=== PATIENT | male | born 1935 | race Caucasian/White ===

== ENCOUNTER 2019-03-08 16:18 | Inpatient (IN) ==
[2019-03-08] MEDS ORDERED: PHARMACY CONSULT - VANCOMYCIN XX SCH (17:00)
[2019-03-08] MEDS: NS 1000 ML 1,000 ML IV SCH (17:06)
[2019-03-08] MEDS: LEVAQUIN PREMIX IV 500 MG 500 MG/100 ML BAG IV SCH (17:06)
[2019-03-08 17:07] LABS: BASOPHILS # (AUTO) 0.1 X10^3/uL (0.0-0.1); BASOPHILS % (AUTO) 0.6 % (0.2-1.0); EOSINOPHILS # (AUTO) 0.1 x10^3/uL (0.0-0.2); EOSINOPHILS % (AUTO) 0.9 % (0.9-2.9); HEMATOCRIT 39.9 % (42.0-54.0); HEMOGLOBIN 13.6 g/dL (13.5-18.0); LYMPHOCYTES # (AUTO) 2.4 X10^3/uL (1.3-2.9); MEAN CORPUSCULAR HEMOGLOBIN 33.1 pg (27.0-34.0); MEAN CORPUSCULAR VOLUME 97.3 fL (80.0-100.0); MEAN PLATELET VOLUME 8.3 fL (7.4-11.0); MONOCYTES # (AUTO) 0.8 x10^3/uL (0.3-0.8); NEUTROPHILS # (AUTO) 5.6 x10^3/uL (2.2-4.8); NEUTROPHILS % (AUTO) 62.5 % (42.0-75.0); PLATELET COUNT 194 X10^3/uL (150.0-450.0); RED CELL DISTRIBUTION WIDTH 14.6 % (11.6-16.5); WHITE BLOOD COUNT 8.9 X10^3/uL (3.6-10.0)
[2019-03-08 17:21] LABS: ALANINE AMINOTRANSFERASE 16 Units/L (12-78); ALBUMIN 3.4 g/dL (3.4-5.0); ALKALINE PHOSPHATASE 84 Units/L (46-116); ASPARTATE AMINO TRANSFERASE 16 Units/L (15-37); BLOOD UREA NITROGEN 13 mg/dL (7-18); CALCIUM 8.8 mg/dL (8.5-10.1); CARBON DIOXIDE 30.5 mmol/L (21-32); CHLORIDE 97 mmol/L (98-107); CREATININE 1.15 mg/dL (0.70-1.30); SODIUM 136 mmol/L (136-145); TOTAL PROTEIN 7.8 g/dL (6.4-8.2); eGFR NON BLACK RACES > 60 (>60)
[2019-03-08] MEDS ORDERED: K-RIDER 10 MEQ/NS 100 ML 10 MEQ/100 ML BAG IV PRN (17:34)
[2019-03-08] MEDS ORDERED: MICRO K EXTEN CAP 10 MEQ PO PRN (17:34)
[2019-03-08] MEDS ORDERED: POTASSIUM CHLORIDE LIQ 20 MEQ UDC PO PRN (17:34)
[2019-03-08] MEDS ORDERED: POTASSIUM CHL 60 MEQ/NS 0.45% 500 ML IV PRN (17:34)
[2019-03-08] MEDS ORDERED: POTASSIUM CHL 40 MEQ/NS 0.45% 500 ML IV PRN (17:34)
[2019-03-08 17:47] VITALS: BMI 25.1
[2019-03-08] MEDS: MAGNESIUM SULFATE 1 GRAM/100 mL PREMIX 1 GM/100 ML BAG IV PRN (18:30)
[2019-03-08] MEDS: KLOR-CON PO PRN (18:35)
[2019-03-08] MEDS: VANCOMYCIN HCL 1 G in D5W 250 ML IV 250 ML IV SCH (20:30)
[2019-03-08] MEDS: K-DUR TAB 20 MEQ PO PRN (22:38)
[2019-03-09 05:48] LABS: BASOPHILS % (AUTO) 0.2 % (0.2-1.0); EOSINOPHILS # (AUTO) 0.1 x10^3/uL (0.0-0.2); HEMATOCRIT 33.7 % (42.0-54.0); HEMOGLOBIN 11.7 g/dL (13.5-18.0); LYMPHOCYTES # (AUTO) 1.7 X10^3/uL (1.3-2.9); MEAN CORPUSCULAR HEMOGLOBIN 33.3 pg (27.0-34.0); MEAN CORPUSCULAR HGB CONC 34.6 g/dL (33.0-35.0); MEAN CORPUSCULAR VOLUME 96.4 fL (80.0-100.0); MEAN PLATELET VOLUME 8.4 fL (7.4-11.0); MONOCYTES # (AUTO) 0.6 x10^3/uL (0.3-0.8); MONOCYTES % (AUTO) 8.2 % (0.0-13.0); NEUTROPHILS # (AUTO) 5.4 x10^3/uL (2.2-4.8); NEUTROPHILS % (AUTO) 68.6 % (42.0-75.0); PLATELET COUNT 153 X10^3/uL (150.0-450.0); RED CELL DISTRIBUTION WIDTH 14.8 % (11.6-16.5); WHITE BLOOD COUNT 7.9 X10^3/uL (3.6-10.0)
[2019-03-09 05:58] LABS: ALANINE AMINOTRANSFERASE 13 Units/L (12-78); ALBUMIN 2.6 g/dL (3.4-5.0); ALKALINE PHOSPHATASE 63 Units/L (46-116); ASPARTATE AMINO TRANSFERASE 13 Units/L (15-37); BLOOD UREA NITROGEN 9 mg/dL (7-18); CALCIUM 7.9 mg/dL (8.5-10.1); CARBON DIOXIDE 29.1 mmol/L (21-32); CHLORIDE 102 mmol/L (98-107); COR NA(FOR HYPERGLY) 137 mmol/L (136-145); CREATININE 0.92 mg/dL (0.70-1.30); SODIUM 137 mmol/L (136-145); TOTAL PROTEIN 6.2 g/dL (6.4-8.2); eGFR NON BLACK RACES > 60 (>60)
[2019-03-09] MEDS: NS 1000 ML 1,000 ML IV SCH ×3 (06:29→21:06)
[2019-03-09] MEDS: ZOFRAN INJ 4 MG VIAL IVP PRN (06:35)
[2019-03-09] MEDS: VANCOMYCIN HCL 1 G in D5W 250 ML IV 250 ML IV SCH ×2 (09:13→21:07)
[2019-03-09] MEDS: LEVAQUIN PREMIX IV 500 MG 500 MG/100 ML BAG IV SCH (09:15)
--- NOTE | 2019-03-09 09:58 | DR.UPDATE ---
H&P Update History and Physical Update: History and Physical reviewed and patient examined. Changes noted: Yes with the following: WAS SEEN IN THE OFFICE TODAY FOR COMPLAINTS OF RIGHT FOOT AND ANKLE REDNESS, PAIN, AND SWELLING. HE REPORTS FALLING THREE DAYS AGO. HE WAS ADMITTED FOR FURTHER EVALUATION AND TREATMENT OF RIGHT FOOT CELLULITIS. ON ADMISSION, WE WILL OBTAIN LABS AND START IV VANCOMYCIN AND IV LEVAQUIN. OTHERWISE, WE PLAN TO FOLLOW UP WITH AM LABS AND CONTINUE TO MONITOR. Prescription drug monitoring program results: PDMP was not reviewed H&P Reviewed: Yes Patient was examined?: Yes
--- NOTE | 2019-03-09 10:08 | PCM.PROG ---
Progress Note - Progress Note for Day of Date of Exam: 03/09/19 - Subjective Subjective: WAS ADMITTED FOR RIGHT LOWER EXTREMITY CELLULITIS. TODAY, HE IS ALERT AND ORIENTED, LYING IN BED ON MORNING ROUNDS. HE CONTINUES WITH ERYTHEMA, EDEMA, AND PAIN TO THE RIGHT FOOT. HE REPORTS THAT PAIN HAS SLIGHTLY IMPROVED SINCE YESTERDAY. ON EXAMINATION, HEART IS REGULAR IN RATE AND RHYTHM. BILATERAL LUNGS ARE NOTED WITH DIMINISHED LUNG SOUNDS THROUGHOUT. ABDOMEN IS ROUND, SOFT, AND NON-TENDER WITH NORMAL BOWEL SOUNDS NOTED IN ALL QUADRANTS. RIGHT FOOT CONTINUES WITH ERYTHEMA AND EDEMA, ALTHOUGH DECREASED SINCE YESTERDAY. HIS VITALS THIS MORNING ARE 97.6-69-20-96%-138/63. LABS WERE OBTAINED. ABNORMAL LAB VALUES INCLUDE THE FOLLOWING: RBC 3.50, HGB 11.7, HCT 33.7, GLUCOSE 112, CALCIUM 7.9, TOTAL BILI 1.20, AST 13, ALBUMIN 2.6. BLOOD CULTURES ARE PENDING. HE IS CURRENTLY RECEIVING IV FLUIDS, IV VANCOMYCIN, AND IV LEVAQUIN. WE WILL CONTINUE WITH CURRENT PLAN OF CARE TODAY. WE WILL OBTAIN A MRI WITH CONTRAST OF THE RIGHT LOWER EXTREMITY AND OBTAIN URIC ACID, SED RATE, AND CRP LEVELS. OTHERWISE, WE WILL FOLLOW UP WITH AM LABS AND CONTINUE TO MONITOR. - Past Medical Family Social History Past Med/Fam/Surg Hx: No changes since H&P Allergies: Allergies diphenhydramine [From Benadryl] Allergy (Verified 03/08/19 16:44) - Review of Systems ROS: No change since H&P - Vital Signs and I&O's Vital Signs: Temperature 97.6 F Pulse Rate [Left Brachial] 69 Respiratory Rate 20 Blood Pressure [Left Arm] 138/63 Blood Pressure 145/62 O2 Sat by Pulse Oximetry 96 Intake and Output: Intake & Output 03/06/19 03/07/19 03/08/19 03/09/19 11:59 11:59 11:59 11:59 Intake Total 2099 Balance 2099 - Physical Exam Oriented: Normal Eyes: Normal Ear: Normal Nose: Normal Throat: Normal Respiratory: Normal Cardiovascular: Normal : Normal Auscultation: Bowel Sounds: Normal Palpation: Normal Tenderness: Normal Skin: Red (RIGHT FOOT ), Tender, Hot Musculoskeletal: Right, Foot, Swelling, Tender Psychiatric: Normal Mood Description: Calm Affect: Normal Speech Pattern: Clear, Appropriate - Laboratory and Diagnostics Result Diagrams: 03/09/19 04:47 03/09/19 04:47 Labs: Laboratory WBC 7.9 X10^3/uL (3.6-10.0) 03/09/19 04:47 RBC 3.50 X10^6/uL (4.7-6.0) L 03/09/19 04:47 Hgb 11.7 g/dL (13.5-18.0) L 03/09/19 04:47 Hct 33.7 % (42.0-54.0) L 03/09/19 04:47 MCV 96.4 fL (80.0-100.0) 03/09/19 04:47 MCH 33.3 pg (27.0-34.0) 03/09/19 04:47 MCHC 34.6 g/dL (33.0-35.0) 03/09/19 04:47 RDW 14.8 % (11.6-16.5) 03/09/19 04:47 Plt Count 153 X10^3/uL (150.0-450.0) 03/09/19 04:47 MPV 8.4 fL (7.4-11.0) 03/09/19 04:47 Neut % (Auto) 68.6 % (42.0-75.0) 03/09/19 04:47 Lymph % (Auto) 22.0 % (21.0-51.0) 03/09/19 04:47 [place] % (Auto) 8.2 % (0.0-13.0) 03/09/19 04:47 Eos % (Auto) 1.0 % (0.9-2.9) 03/09/19 04:47 Baso % (Auto) 0.2 % (0.2-1.0) 03/09/19 04:47 Neut # (Auto) 5.4 x10^3/uL (2.2-4.8) H 03/09/19 04:47 Lymph # (Auto) 1.7 X10^3/uL (1.3-2.9) 03/09/19 04:47 [place] # (Auto) 0.6 x10^3/uL (0.3-0.8) 03/09/19 04:47 Eos # (Auto) 0.1 x10^3/uL (0.0-0.2) 03/09/19 04:47 Baso # (Auto) 0.0 X10^3/uL (0.0-0.1) 03/09/19 04:47 Absolute Nucleated RBC 0.0 /100WBC 03/09/19 04:47 Sodium 137 mmol/L (136-145) 03/09/19 04:47 Corrected Sodium 137 mmol/L (136-145) 03/09/19 04:47 Potassium 3.7 mmol/L (3.5-5.1) 03/09/19 04:47 Chloride 102 mmol/L (98-107) 03/09/19 04:47 Carbon Dioxide 29.1 mmol/L (21-32) 03/09/19 04:47 BUN 9 mg/dL (7-18) 03/09/19 04:47 Creatinine 0.92 mg/dL (0.70-1.30) 03/09/19 04:47 Est GFR (MDRD) Af Amer > 60 (>60) 03/09/19 04:47 Est GFR (MDRD) Non-Af > 60 (>60) 03/09/19 04:47 Glucose 112 mg/dL (65-99) H 03/09/19 04:47 Calcium 7.9 mg/dL (8.5-10.1) L 03/09/19 04:47 Corrected Calcium 9.0 mg/dL (8.5-10.1) 03/09/19 04:47 Magnesium 2.0 mg/dL (1.7-2.9) 03/09/19 04:47 Total Bilirubin 1.20 mg/dL (0.2-1.0) H 03/09/19 04:47 AST 13 Units/L (15-37) L 03/09/19 04:47 ALT 13 Units/L (12-78) 03/09/19 04:47 Alkaline Phosphatase 63 Units/L (46-116) 03/09/19 04:47 Total Protein 6.2 g/dL (6.4-8.2) L 03/09/19 04:47 Albumin 2.6 g/dL (3.4-5.0) L 03/09/19 04:47 Globulin 3.6 g/dL (2.5-4.5) 03/09/19 04:47 Albumin/Globulin Ratio 0.7 Ratio (1.1-2.1) L 03/09/19 04:47 - Plan (1) Cellulitis of right foot Status: Acute Plan: IV VANCOMYCIN, IV LEVAQUIN, MRI LOWER EXTREMITY WITH CONTRAST, CONTINUE TO MONITOR
[2019-03-09] MEDS ORDERED: ULTRAM PO PRN (10:18)
[2019-03-09 10:54] LABS: URIC ACID 5.7 mg/dL (3.5-7.2)
[2019-03-09] MEDS: ELIQUIS PO SCH ×2 (11:00→21:07)
[2019-03-09] MEDS: COLACE CAP 100 MG PO SCH (21:07)
[2019-03-10 05:47] LABS: BASOPHILS % (AUTO) 0.3 % (0.2-1.0); EOSINOPHILS # (AUTO) 0.2 x10^3/uL (0.0-0.2); EOSINOPHILS % (AUTO) 1.9 % (0.9-2.9); HEMATOCRIT 34.5 % (42.0-54.0); LYMPHOCYTES # (AUTO) 1.9 X10^3/uL (1.3-2.9); LYMPHOCYTES % (AUTO) 23.3 % (21.0-51.0); MEAN CORPUSCULAR HEMOGLOBIN 33.6 pg (27.0-34.0); MEAN CORPUSCULAR HGB CONC 34.9 g/dL (33.0-35.0); MEAN CORPUSCULAR VOLUME 96.3 fL (80.0-100.0); MONOCYTES # (AUTO) 0.6 x10^3/uL (0.3-0.8); MONOCYTES % (AUTO) 7.8 % (0.0-13.0); NEUTROPHILS # (AUTO) 5.4 x10^3/uL (2.2-4.8); NEUTROPHILS % (AUTO) 66.7 % (42.0-75.0); PLATELET COUNT 162 X10^3/uL (150.0-450.0); RED BLOOD COUNT 3.59 X10^6/uL (4.7-6.0); RED CELL DISTRIBUTION WIDTH 14.8 % (11.6-16.5); WHITE BLOOD COUNT 8.1 X10^3/uL (3.6-10.0)
[2019-03-10 06:02] LABS: ALANINE AMINOTRANSFERASE 10 Units/L (12-78); ALBUMIN 2.6 g/dL (3.4-5.0); ALKALINE PHOSPHATASE 63 Units/L (46-116); ASPARTATE AMINO TRANSFERASE 13 Units/L (15-37); BLOOD UREA NITROGEN 10 mg/dL (7-18); CALCIUM 8.2 mg/dL (8.5-10.1); CARBON DIOXIDE 29.2 mmol/L (21-32); CHLORIDE 102 mmol/L (98-107); COR CA(FOR HYPOALB) 9.3 mg/dL (8.5-10.1); COR NA(FOR HYPERGLY) 137 mmol/L (136-145); CREATININE 0.86 mg/dL (0.70-1.30); SODIUM 137 mmol/L (136-145); TOTAL PROTEIN 6.5 g/dL (6.4-8.2); eGFR NON BLACK RACES > 60 (>60)
[2019-03-10] MEDS: K-DUR TAB 20 MEQ PO PRN (06:32)
[2019-03-10] MEDS: LEVAQUIN PREMIX IV 500 MG 500 MG/100 ML BAG IV SCH (08:30)
[2019-03-10] MEDS ORDERED: PHARMACY COMMENT IV NR (08:30)
[2019-03-10] MEDS: ELIQUIS PO SCH ×2 (08:32→22:00)
[2019-03-10] MEDS: PATIENT'S HOME MEDICATION PO SCH (08:35)
[2019-03-10] MEDS: NS 1000 ML 1,000 ML IV SCH ×3 (10:13→21:00)
[2019-03-10] MEDS: VANCOMYCIN HCL 1 G in D5W 250 ML IV 250 ML IV SCH ×2 (10:13→23:00)
--- NOTE | 2019-03-10 11:02 | VAS ---
HISTORYRT RLE EDEMA, RT FOOT CELLULITISSTUDYLOWER EXT VENOUS, UNILATERALCOMPARISONNo priorsTECHNIQUEMultiple michaud scale, duplex and color flow Doppler images of the deep venous system were obtained of the right lower extremity.FINDINGSThe deep venous system of the right lower extremity was evaluated from the level of the common femoral vein through the popliteal vein. Normal color flow and augmentation can be observed. In addition, normal compression is seen throughout the deep venous system.IMPRESSIONNegative for DVT.Electronically signed by: SYD RUTLEDGE (Mar 10, 2019 11:01:06)
--- NOTE | 2019-03-10 11:07 | PCM.PROG ---
Progress Note - Progress Note for Day of Date of Exam: 03/10/19 - Subjective Subjective: WAS ADMITTED FOR RIGHT LOWER EXTREMITY CELLULITIS. TODAY, HE IS ALERT AND ORIENTED, LYING IN BED ON MORNING ROUNDS. HE CONTINUES WITH ERYTHEMA, EDEMA, AND PAIN TO THE RIGHT FOOT. REDNESS HAS INCREASED SINCE YESTERDAY. IT HAS INCREASED OUTSIDE OF MARKINGS THAT WERE MADE ON ADMISSION. ON EXAMINATION, HEART IS REGULAR IN RATE AND RHYTHM. BILATERAL LUNGS ARE NOTED WITH DIMINISHED LUNG SOUNDS THROUGHOUT. ABDOMEN IS ROUND, SOFT, AND NON-TENDER WITH NORMAL BOWEL SOUNDS NOTED IN ALL QUADRANTS. RIGHT FOOT CONTINUES WITH ERYTHEMA AND EDEMA. SWELLING HAS INCREASED SINCE YESTERDAY. HIS VITALS THIS MORNING ARE 98.0-84-18-96%-138/78. LABS WERE OBTAINED. ABNORMAL LAB VALUES INCLUDE THE FOL LOWING: RBC 3.59, HGB 12.0, HCT 34.5, GLUCOSE 120, CALCIUM 8.2, TOTAL BILI 1.10, AST 13, ALT 10, CRP 101.60, ALBUMIN 2.6. BLOOD CULTURES ARE PENDING. HE IS CURRENTLY RECEIVING IV FLUIDS, IV VANCOMYCIN, AND IV LEVAQUIN. WE WILL CONTINUE WITH CURRENT PLAN OF CARE TODAY. WE WILL OBTAIN A MRI WITH CONTRAST OF THE RIGHT LOWER EXTREMITY THIS MORNING AND ALSO A LOWER EXTREMITY VENOUS DOPPLER. OTHERWISE, WE WILL FOLLOW UP WITH AM LABS AND CONTINUE TO MONITOR. - Past Medical Family Social History Past Med/Fam/Surg Hx: No changes since H&P Allergies: Allergies diphenhydramine [From Benadryl] Allergy (Verified 03/08/19 16:44) - Review of Systems ROS: No change since H&P - Vital Signs and I&O's Vital Signs: Temperature 98 F Pulse Rate [Left Brachial] 84 Respiratory Rate 18 Blood Pressure [Left Arm] 138/78 Blood Pressure 145/62 O2 Sat by Pulse Oximetry 96 Intake and Output: Intake & Output 03/07/19 03/08/19 03/09/19 03/10/19 11:59 11:59 11:59 11:59 Intake Total 2099 3680 / 3680 Balance 2099 3680 / 3680 - Physical Exam Oriented: Normal Eyes: Normal Ear: Normal Nose: Normal Throat: Normal Respiratory: Normal Cardiovascular: Normal : Normal Auscultation: Bowel Sounds: Normal Tenderness: Normal Skin: Red (RIGHT FOOT ), Tender, Hot Musculoskeletal: Right, Foot, Swelling, Tender Psychiatric: Normal Mood Description: Calm Affect: Normal Speech Pattern: Clear, Appropriate - Laboratory and Diagnostics Result Diagrams: 03/10/19 04:51 03/10/19 04:51 Labs: 03/08/19 16:56 Blood Blood Culture - Preliminary Laboratory WBC 8.1 X10^3/uL (3.6-10.0) 03/10/19 04:51 RBC 3.59 X10^6/uL (4.7-6.0) L 03/10/19 04:51 Hgb 12.0 g/dL (13.5-18.0) L 03/10/19 04:51 Hct 34.5 % (42.0-54.0) L 03/10/19 04:51 MCV 96.3 fL (80.0-100.0) 03/10/19 04:51 MCH 33.6 pg (27.0-34.0) 03/10/19 04:51 MCHC 34.9 g/dL (33.0-35.0) 03/10/19 04:51 RDW 14.8 % (11.6-16.5) 03/10/19 04:51 Plt Count 162 X10^3/uL (150.0-450.0) 03/10/19 04:51 MPV 8.0 fL (7.4-11.0) 03/10/19 04:51 Neut % (Auto) 66.7 % (42.0-75.0) 03/10/19 04:51 Lymph % (Auto) 23.3 % (21.0-51.0) 03/10/19 04:51 [place] % (Auto) 7.8 % (0.0-13.0) 03/10/19 04:51 Eos % (Auto) 1.9 % (0.9-2.9) 03/10/19 04:51 Baso % (Auto) 0.3 % (0.2-1.0) 03/10/19 04:51 Neut # (Auto) 5.4 x10^3/uL (2.2-4.8) H 03/10/19 04:51 Lymph # (Auto) 1.9 X10^3/uL (1.3-2.9) 03/10/19 04:51 [place] # (Auto) 0.6 x10^3/uL (0.3-0.8) 03/10/19 04:51 Eos # (Auto) 0.2 x10^3/uL (0.0-0.2) 03/10/19 04:51 Baso # (Auto) 0.0 X10^3/uL (0.0-0.1) 03/10/19 04:51 Absolute Nucleated RBC 0.1 /100WBC 03/10/19 04:51 ESR 51 MM/HOUR (0-15) H 03/09/19 10:35 Sodium 137 mmol/L (136-145) 03/10/19 04:51 Corrected Sodium 137 mmol/L (136-145) 03/10/19 04:51 Potassium 3.5 mmol/L (3.5-5.1) 03/10/19 04:51 Chloride 102 mmol/L (98-107) 03/10/19 04:51 Carbon Dioxide 29.2 mmol/L (21-32) 03/10/19 04:51 BUN 10 mg/dL (7-18) 03/10/19 04:51 Creatinine 0.86 mg/dL (0.70-1.30) 03/10/19 04:51 Est GFR (MDRD) Af Amer > 60 (>60) 03/10/19 04:51 Est GFR (MDRD) Non-Af > 60 (>60) 03/10/19 04:51 Glucose 120 mg/dL (65-99) H 03/10/19 04:51 Uric Acid 5.7 mg/dL (3.5-7.2) 03/09/19 10:35 Calcium 8.2 mg/dL (8.5-10.1) L 03/10/19 04:51 Corrected Calcium 9.3 mg/dL (8.5-10.1) 03/10/19 04:51 Magnesium 2.0 mg/dL (1.7-2.9) 03/09/19 04:47 Total Bilirubin 1.10 mg/dL (0.2-1.0) H 03/10/19 04:51 AST 13 Units/L (15-37) L 03/10/19 04:51 ALT 10 Units/L (12-78) L 03/10/19 04:51 Alkaline Phosphatase 63 Units/L (46-116) 03/10/19 04:51 C-Reactive Protein 101.60 mg/L (0-3.0) H 03/09/19 10:35 Total Protein 6.5 g/dL (6.4-8.2) 03/10/19 04:51 Albumin 2.6 g/dL (3.4-5.0) L 03/10/19 04:51 Globulin 3.9 g/dL (2.5-4.5) 03/10/19 04:51 Albumin/Globulin Ratio 0.7 Ratio (1.1-2.1) L 03/10/19 04:51 - Plan (1) Cellulitis of right foot Status: Acute Plan: IV VANCOMYCIN, IV LEVAQUIN, MRI LOWER EXTREMITY WITH CONTRAST, VENOUS DOPPLER, CONTINUE TO MONITOR
--- NOTE | 2019-03-10 17:16 | MRI ---
Exam:EXT LOWER NON-JOINT W W/O CONIndication: RT FOOT CELLULITISComparison: [None available]Technique:Multiplanar, multisequence imaging of the right foot before and after administration of 18 cc of MultiHance intravenously.Findings:[Non localizing edema is noted within the subcutaneous tissues of the right mid and forefoot with mild increased postcontrast enhancement consistent with cellulitis. There is no localizing fluid collection, abscess or skin ulceration within the foot. No localizing or aggressive bone marrow signal abnormality within the foot. There is subcortical cyst formation and increased enhancement within the calcaneocuboid joint. Mild dysplastic changes Achilles and plantar fascia. No evidence of acute fasciitis.Impression: Soft tissue swelling with postcontrast enhancement within the dorsum of the midfoot and forefoot are consistent with cellulitis. No abscess, localizing fluid collection or soft tissue gas identified. There is no MR evidence to suggest osteomyelitis.Degenerative change of the calcaneocuboid jointDysplastic change of the Achilles and plantar fascia.Electronically signed by: ZENIA WATSON (Mar 10, 2019 17:15:50)
[2019-03-10] MEDS: COLACE CAP 100 MG PO SCH (22:00)
[2019-03-10 22:46] LABS: CREATININE 0.93 mg/dL (0.70-1.30); VANCOMYCIN,TROUGH 8.3 ug/mL (15-20)
[2019-03-11 06:23] LABS: BASOPHILS % (AUTO) 0.6 % (0.2-1.0); EOSINOPHILS # (AUTO) 0.2 x10^3/uL (0.0-0.2); EOSINOPHILS % (AUTO) 3.6 % (0.9-2.9); HEMATOCRIT 34.3 % (42.0-54.0); HEMOGLOBIN 11.6 g/dL (13.5-18.0); LYMPHOCYTES # (AUTO) 1.3 X10^3/uL (1.3-2.9); LYMPHOCYTES % (AUTO) 18.5 % (21.0-51.0); MEAN CORPUSCULAR HEMOGLOBIN 32.7 pg (27.0-34.0); MEAN CORPUSCULAR HGB CONC 33.9 g/dL (33.0-35.0); MEAN CORPUSCULAR VOLUME 96.3 fL (80.0-100.0); MONOCYTES # (AUTO) 0.5 x10^3/uL (0.3-0.8); MONOCYTES % (AUTO) 7.9 % (0.0-13.0); NEUTROPHILS # (AUTO) 4.8 x10^3/uL (2.2-4.8); NEUTROPHILS % (AUTO) 69.4 % (42.0-75.0); PLATELET COUNT 171 X10^3/uL (150.0-450.0); RED BLOOD COUNT 3.56 X10^6/uL (4.7-6.0); RED CELL DISTRIBUTION WIDTH 14.9 % (11.6-16.5); WHITE BLOOD COUNT 6.9 X10^3/uL (3.6-10.0)
[2019-03-11 07:09] LABS: ALANINE AMINOTRANSFERASE 11 Units/L (12-78); ALBUMIN 2.5 g/dL (3.4-5.0); ALKALINE PHOSPHATASE 58 Units/L (46-116); ASPARTATE AMINO TRANSFERASE 10 Units/L (15-37); BLOOD UREA NITROGEN 10 mg/dL (7-18); CALCIUM 8.3 mg/dL (8.5-10.1); CARBON DIOXIDE 27.7 mmol/L (21-32); CHLORIDE 105 mmol/L (98-107); COR CA(FOR HYPOALB) 9.5 mg/dL (8.5-10.1); COR NA(FOR HYPERGLY) 141 mmol/L (136-145); CREATININE 0.76 mg/dL (0.70-1.30); SODIUM 141 mmol/L (136-145); TOTAL PROTEIN 6.2 g/dL (6.4-8.2); eGFR NON BLACK RACES > 60 (>60)
[2019-03-11] MEDS: LEVAQUIN PREMIX IV 500 MG 500 MG/100 ML BAG IV SCH (08:26)
[2019-03-11] MEDS: ELIQUIS PO SCH ×2 (08:29→21:30)
[2019-03-11] MEDS: PATIENT'S HOME MEDICATION PO SCH (08:29)
[2019-03-11] MEDS: VANCOMYCIN HCL 1 G in D5W 250 ML IV 250 ML IV SCH ×2 (09:50→21:31)
[2019-03-11] MEDS: ZOFRAN INJ 4 MG VIAL IVP PRN (10:36)
[2019-03-11] MEDS: NS 1000 ML 1,000 ML IV SCH ×2 (11:14→12:13)
[2019-03-11] MEDS: COLACE CAP 100 MG PO SCH (21:30)
[2019-03-12] MEDS: NS 1000 ML 1,000 ML IV SCH ×3 (02:39→17:41)
[2019-03-12 06:12] LABS: BASOPHILS % (AUTO) 0.4 % (0.2-1.0); EOSINOPHILS # (AUTO) 0.3 x10^3/uL (0.0-0.2); EOSINOPHILS % (AUTO) 4.3 % (0.9-2.9); HEMATOCRIT 33.3 % (42.0-54.0); HEMOGLOBIN 11.5 g/dL (13.5-18.0); LYMPHOCYTES # (AUTO) 1.5 X10^3/uL (1.3-2.9); LYMPHOCYTES % (AUTO) 20.1 % (21.0-51.0); MEAN CORPUSCULAR HEMOGLOBIN 33.4 pg (27.0-34.0); MEAN CORPUSCULAR HGB CONC 34.6 g/dL (33.0-35.0); MEAN CORPUSCULAR VOLUME 96.6 fL (80.0-100.0); MEAN PLATELET VOLUME 8.3 fL (7.4-11.0); MONOCYTES # (AUTO) 0.5 x10^3/uL (0.3-0.8); MONOCYTES % (AUTO) 7.5 % (0.0-13.0); NEUTROPHILS % (AUTO) 67.7 % (42.0-75.0); PLATELET COUNT 176 X10^3/uL (150.0-450.0); RED BLOOD COUNT 3.45 X10^6/uL (4.7-6.0); RED CELL DISTRIBUTION WIDTH 14.7 % (11.6-16.5); WHITE BLOOD COUNT 7.3 X10^3/uL (3.6-10.0)
[2019-03-12 06:21] LABS: ALANINE AMINOTRANSFERASE 10 Units/L (12-78); ALBUMIN 2.4 g/dL (3.4-5.0); ALKALINE PHOSPHATASE 56 Units/L (46-116); ASPARTATE AMINO TRANSFERASE 13 Units/L (15-37); BLOOD UREA NITROGEN 10 mg/dL (7-18); CALCIUM 8.1 mg/dL (8.5-10.1); CARBON DIOXIDE 30.4 mmol/L (21-32); CHLORIDE 105 mmol/L (98-107); COR CA(FOR HYPOALB) 9.4 mg/dL (8.5-10.1); CREATININE 0.86 mg/dL (0.70-1.30); SODIUM 141 mmol/L (136-145); eGFR NON BLACK RACES > 60 (>60)
[2019-03-12] MEDS: LEVAQUIN PREMIX IV 500 MG 500 MG/100 ML BAG IV SCH (08:39)
[2019-03-12] MEDS: ELIQUIS PO SCH ×2 (08:40→21:35)
[2019-03-12] MEDS: PATIENT'S HOME MEDICATION PO SCH (08:40)
[2019-03-12] MEDS: VANCOMYCIN HCL 1 G in D5W 250 ML IV 250 ML IV SCH ×2 (09:39→21:00)
[2019-03-12 19:57] LABS: CREATININE 0.96 mg/dL (0.70-1.30); VANCOMYCIN,TROUGH 13.4 ug/mL (15-20)
[2019-03-12] MEDS: COLACE CAP 100 MG PO SCH (21:34)
[2019-03-13] MEDS: NS 1000 ML 1,000 ML IV SCH ×2 (01:39→08:37)
[2019-03-13 06:12] LABS: BASOPHILS # (AUTO) 0.1 X10^3/uL (0.0-0.1); BASOPHILS % (AUTO) 0.7 % (0.2-1.0); EOSINOPHILS # (AUTO) 0.3 x10^3/uL (0.0-0.2); HEMOGLOBIN 11.7 g/dL (13.5-18.0); LYMPHOCYTES # (AUTO) 1.5 X10^3/uL (1.3-2.9); LYMPHOCYTES % (AUTO) 19.5 % (21.0-51.0); MEAN CORPUSCULAR HGB CONC 34.3 g/dL (33.0-35.0); MEAN CORPUSCULAR VOLUME 96.3 fL (80.0-100.0); MEAN PLATELET VOLUME 8.1 fL (7.4-11.0); MONOCYTES # (AUTO) 0.6 x10^3/uL (0.3-0.8); MONOCYTES % (AUTO) 7.3 % (0.0-13.0); NEUTROPHILS # (AUTO) 5.3 x10^3/uL (2.2-4.8); NEUTROPHILS % (AUTO) 68.5 % (42.0-75.0); PLATELET COUNT 171 X10^3/uL (150.0-450.0); RED BLOOD COUNT 3.53 X10^6/uL (4.7-6.0); WHITE BLOOD COUNT 7.7 X10^3/uL (3.6-10.0)
[2019-03-13 06:15] LABS: ALANINE AMINOTRANSFERASE 9 Units/L (12-78); ALBUMIN 2.4 g/dL (3.4-5.0); ALKALINE PHOSPHATASE 60 Units/L (46-116); ASPARTATE AMINO TRANSFERASE 12 Units/L (15-37); BLOOD UREA NITROGEN 11 mg/dL (7-18); CALCIUM 8.3 mg/dL (8.5-10.1); CARBON DIOXIDE 29.6 mmol/L (21-32); CHLORIDE 104 mmol/L (98-107); COR CA(FOR HYPOALB) 9.6 mg/dL (8.5-10.1); CREATININE 0.86 mg/dL (0.70-1.30); SODIUM 140 mmol/L (136-145); TOTAL PROTEIN 6.1 g/dL (6.4-8.2); eGFR NON BLACK RACES > 60 (>60)
[2019-03-13] MEDS: KLOR-CON PO PRN (06:36)
--- NOTE | 2019-03-13 08:28 | PCM.PROG ---
Progress Note - Progress Note for Day of Date of Exam: 03/11/19 - Subjective Subjective: WAS ADMITTED FOR RIGHT LOWER EXTREMITY CELLULITIS. TODAY, HE IS ALERT AND ORIENTED, LYING IN BED ON MORNING ROUNDS. HE CONTINUES WITH ERYTHEMA, EDEMA, AND PAIN TO THE RIGHT FOOT. ON EXAMINATION, HEART IS REGULAR IN RATE AND RHYTHM. BILATERAL LUNGS ARE NOTED WITH DIMINISHED LUNG SOUNDS THROUGHOUT. ABDOMEN IS ROUND, SOFT, AND NON-TENDER WITH NORMAL BOWEL SOUNDS NOTED IN ALL QUADRANTS. RIGHT FOOT CONTINUES WITH ERYTHEMA AND EDEMA. SWELLING HAS INCREASED SINCE YESTERDAY. HIS VITALS THIS MORNING ARE 98.0-89-18-96%-145/80. LABS WERE OBTAINED. ABNORMAL LAB VALUES INCLUDE THE FOLLOWING: RBC 3.56, hgb 11.6, hct 34.3, glucose 116, calcium 8.3, ast 10, alt 11, total protein 6.2, albumin 2.5. BLOOD CULTURES ARE PENDING. VENOUS DOPPLER WAS NEGATIVE FOR DVT. MRI REVEALED: Soft tissue swelling with postcontrast enhancement within the dorsum of the midfoot and forefoot are consistent with cellulitis. No abscess, localizing fluid collection or soft tissue gas identified. There is no MR evidence to suggest osteomyelitis. Degenerative change of the calcaneocuboid joint. 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 HE IS CURRENTLY RECEIVING IV FLUIDS, IV VANCOMYCIN, AND IV LE VAQUIN. WE WILL CONTINUE WITH CURRENT PLAN OF CARE TODAY. DOPPLER. OTHERWISE, WE WILL FOLLOW UP WITH AM LABS AND CONTINUE TO MONITOR. - Past Medical Family Social History Past Med/Fam/Surg Hx: No changes since H&P Allergies: Allergies diphenhydramine [From Benadryl] Allergy (Verified 03/08/19 16:44) - Review of Systems ROS: No change since H&P - Vital Signs and I&O's Vital Signs: Temperature 98.1 F Pulse Rate [Left Brachial] 82 Respiratory Rate 20 Blood Pressure [Left Arm] 171/85 Blood Pressure 145/62 O2 Sat by Pulse Oximetry 97 Intake and Output: Intake & Output 03/10/19 03/11/19 03/12/19 03/13/19 11:59 11:59 11:59 11:59 Intake Total 3680 / 3680 2064 2950 / 2950 3239 / 3239 Balance 3680 / 3680 2064 2950 / 2950 3239 / 3239 - Physical Exam Oriented: Normal Eyes: Normal Ear: Normal Nose: Normal Throat: Normal Respiratory: Normal Cardiovascular: Normal : Normal Auscultation: Bowel Sounds: Normal Palpation: Normal Tenderness: Normal Skin: Red (RIGHT FOOT ), Tender, Hot Musculoskeletal: Right, Foot, Swelling, Tender Psychiatric: Normal Mood Description: Calm Affect: Normal Speech Pattern: Clear, Appropriate - Laboratory and Diagnostics Result Diagrams: 03/13/19 04:55 03/13/19 04:55 Labs: 03/08/19 16:56 Blood Blood Culture - Final 03/08/19 16:50 Blood Blood Culture - Preliminary Laboratory WBC 7.7 X10^3/uL (3.6-10.0) 03/13/19 04:55 RBC 3.53 X10^6/uL (4.7-6.0) L 03/13/19 04:55 Hgb 11.7 g/dL (13.5-18.0) L 03/13/19 04:55 Hct 34.0 % (42.0-54.0) L 03/13/19 04:55 MCV 96.3 fL (80.0-100.0) 03/13/19 04:55 MCH 33.0 pg (27.0-34.0) 03/13/19 04:55 MCHC 34.3 g/dL (33.0-35.0) 03/13/19 04:55 RDW 15.0 % (11.6-16.5) 03/13/19 04:55 Plt Count 171 X10^3/uL (150.0-450.0) 03/13/19 04:55 MPV 8.1 fL (7.4-11.0) 03/13/19 04:55 Neut % (Auto) 68.5 % (42.0-75.0) 03/13/19 04:55 Lymph % (Auto) 19.5 % (21.0-51.0) L 03/13/19 04:55 [place] % (Auto) 7.3 % (0.0-13.0) 03/13/19 04:55 Eos % (Auto) 4.0 % (0.9-2.9) H 03/13/19 04:55 Baso % (Auto) 0.7 % (0.2-1.0) 03/13/19 04:55 Neut # (Auto) 5.3 x10^3/uL (2.2-4.8) H 03/13/19 04:55 Lymph # (Auto) 1.5 X10^3/uL (1.3-2.9) 03/13/19 04:55 [place] # (Auto) 0.6 x10^3/uL (0.3-0.8) 03/13/19 04:55 Eos # (Auto) 0.3 x10^3/uL (0.0-0.2) H 03/13/19 04:55 Baso # (Auto) 0.1 X10^3/uL (0.0-0.1) 03/13/19 04:55 Absolute Nucleated RBC 0.0 /100WBC 03/13/19 04:55 ESR 51 MM/HOUR (0-15) H 03/09/19 10:35 Sodium 140 mmol/L (136-145) 03/13/19 04:55 Corrected Sodium TNP 03/13/19 04:55 Potassium 3.4 mmol/L (3.5-5.1) L 03/13/19 04:55 Chloride 104 mmol/L (98-107) 03/13/19 04:55 Carbon Dioxide 29.6 mmol/L (21-32) 03/13/19 04:55 BUN 11 mg/dL (7-18) 03/13/19 04:55 Creatinine 0.86 mg/dL (0.70-1.30) 03/13/19 04:55 Est GFR (MDRD) Af Amer > 60 (>60) 03/13/19 04:55 Est GFR (MDRD) Non-Af > 60 (>60) 03/13/19 04:55 Glucose 99 mg/dL (65-99) 03/13/19 04:55 Uric Acid 5.7 mg/dL (3.5-7.2) 03/09/19 10:35 Calcium 8.3 mg/dL (8.5-10.1) L 03/13/19 04:55 Corrected Calcium 9.6 mg/dL (8.5-10.1) 03/13/19 04:55 Magnesium 2.0 mg/dL (1.7-2.9) 03/09/19 04:47 Total Bilirubin 0.70 mg/dL (0.2-1.0) 03/13/19 04:55 AST 12 Units/L (15-37) L 03/13/19 04:55 ALT 9 Units/L (12-78) L 03/13/19 04:55 Alkaline Phosphatase 60 Units/L (46-116) 03/13/19 04:55 C-Reactive Protein 101.60 mg/L (0-3.0) H 03/09/19 10:35 Total Protein 6.1 g/dL (6.4-8.2) L 03/13/19 04:55 Albumin 2.4 g/dL (3.4-5.0) L 03/13/19 04:55 Globulin 3.7 g/dL (2.5-4.5) 03/13/19 04:55 Albumin/Globulin Ratio 0.6 Ratio (1.1-2.1) L 03/13/19 04:55 Vancomycin Trough 13.4 ug/mL (15-20) L 03/12/19 19:12 - Plan (1) Cellulitis of right foot Status: Acute Plan: IV VANCOMYCIN, IV LEVAQUIN, CONTINUE TO MONITOR
--- NOTE | 2019-03-13 08:30 | PCM.PROG ---
Progress Note - Progress Note for Day of Date of Exam: 03/12/19 - Subjective Subjective: WAS ADMITTED FOR RIGHT LOWER EXTREMITY CELLULITIS. TODAY, HE IS ALERT AND ORIENTED, LYING IN BED ON MORNING ROUNDS. HE CONTINUES WITH ERYTHEMA, EDEMA, AND PAIN TO THE RIGHT FOOT. ERYTHEMA AND EDEMA HAVE SLIGHTLY DECREASED SINCE YESTERDAY. ON EXAMINATION, HEART IS REGULAR IN RATE AND RHYTHM. BILATERAL LUNGS ARE NOTED WITH DIMINISHED LUNG SOUNDS THROUGHOUT. ABDOMEN IS ROUND, SOFT, AND NON-TENDER WITH NORMAL BOWEL SOUNDS NOTED IN ALL QUADRANTS. RIGHT FOOT CONTINUES WITH ERYTHEMA AND EDEMA. HIS VITALS THIS MORNING ARE 97.8-78-18-92%-107/68. LABS WERE OBTAINED. ABNORMAL LAB VALUES INCLUDE THE FOLLOWING: RBC 3.45, HGB 11.5, HCT 33.3, GLUCOSE 102, CALCIUM 8.1, AST 13, ALT 10, TOTAL PROTEIN 6.0, ALBUMIN 2.4. BLOOD CULTURES ARE PENDING. HE IS CURRENTLY RECEIVING IV FLUIDS, IV VANCOMYCIN, AND IV LEVAQUIN. WE WILL CONTINUE WITH CURRENT PLAN OF CARE TODAY. OTHERWISE, WE WILL FOLLOW UP WITH AM LABS AND CONTINUE TO MONITOR. - Past Medical Family Social History Past Med/Fam/Surg Hx: No changes since H&P Allergies: Allergies diphenhydramine [From Benadryl] Allergy (Verified 03/08/19 16:44) - Review of Systems ROS: No change since H&P - Vital Signs and I&O's Vital Signs: Temperature 98.1 F Pulse Rate [Left Brachial] 82 Respiratory Rate 20 Blood Pressure [Left Arm] 171/85 Blood Pressure 145/62 O2 Sat by Pulse Oximetry 97 Intake and Output: Intake & Output 03/10/19 03/11/19 03/12/19 03/13/19 11:59 11:59 11:59 11:59 Intake Total 3680 / 3680 2064 2950 / 2950 3239 / 3239 Balance 3680 / 3680 2064 2950 / 2950 3239 / 3239 - Physical Exam Oriented: Normal Eyes: Normal Ear: Normal Nose: Normal Throat: Normal Respiratory: Normal Cardiovascular: Normal : Normal Auscultation: Bowel Sounds: Normal Tenderness: Normal Skin: Red (RIGHT FOOT ), Tender, Hot Musculoskeletal: Right, Foot, Swelling, Tender Psychiatric: Normal Mood Description: Calm Affect: Normal Speech Pattern: Clear, Appropriate - Laboratory and Diagnostics Result Diagrams: 03/13/19 04:55 03/13/19 04:55 Labs: 03/08/19 16:56 Blood Blood Culture - Final 03/08/19 16:50 Blood Blood Culture - Preliminary Laboratory WBC 7.7 X10^3/uL (3.6-10.0) 03/13/19 04:55 RBC 3.53 X10^6/uL (4.7-6.0) L 03/13/19 04:55 Hgb 11.7 g/dL (13.5-18.0) L 03/13/19 04:55 Hct 34.0 % (42.0-54.0) L 03/13/19 04:55 MCV 96.3 fL (80.0-100.0) 03/13/19 04:55 MCH 33.0 pg (27.0-34.0) 03/13/19 04:55 MCHC 34.3 g/dL (33.0-35.0) 03/13/19 04:55 RDW 15.0 % (11.6-16.5) 03/13/19 04:55 Plt Count 171 X10^3/uL (150.0-450.0) 03/13/19 04:55 MPV 8.1 fL (7.4-11.0) 03/13/19 04:55 Neut % (Auto) 68.5 % (42.0-75.0) 03/13/19 04:55 Lymph % (Auto) 19.5 % (21.0-51.0) L 03/13/19 04:55 [place] % (Auto) 7.3 % (0.0-13.0) 03/13/19 04:55 Eos % (Auto) 4.0 % (0.9-2.9) H 03/13/19 04:55 Baso % (Auto) 0.7 % (0.2-1.0) 03/13/19 04:55 Neut # (Auto) 5.3 x10^3/uL (2.2-4.8) H 03/13/19 04:55 Lymph # (Auto) 1.5 X10^3/uL (1.3-2.9) 03/13/19 04:55 [place] # (Auto) 0.6 x10^3/uL (0.3-0.8) 03/13/19 04:55 Eos # (Auto) 0.3 x10^3/uL (0.0-0.2) H 03/13/19 04:55 Baso # (Auto) 0.1 X10^3/uL (0.0-0.1) 03/13/19 04:55 Absolute Nucleated RBC 0.0 /100WBC 03/13/19 04:55 ESR 51 MM/HOUR (0-15) H 03/09/19 10:35 Sodium 140 mmol/L (136-145) 03/13/19 04:55 Corrected Sodium TNP 03/13/19 04:55 Potassium 3.4 mmol/L (3.5-5.1) L 03/13/19 04:55 Chloride 104 mmol/L (98-107) 03/13/19 04:55 Carbon Dioxide 29.6 mmol/L (21-32) 03/13/19 04:55 BUN 11 mg/dL (7-18) 03/13/19 04:55 Creatinine 0.86 mg/dL (0.70-1.30) 03/13/19 04:55 Est GFR (MDRD) Af Amer > 60 (>60) 03/13/19 04:55 Est GFR (MDRD) Non-Af > 60 (>60) 03/13/19 04:55 Glucose 99 mg/dL (65-99) 03/13/19 04:55 Uric Acid 5.7 mg/dL (3.5-7.2) 03/09/19 10:35 Calcium 8.3 mg/dL (8.5-10.1) L 03/13/19 04:55 Corrected Calcium 9.6 mg/dL (8.5-10.1) 03/13/19 04:55 Magnesium 2.0 mg/dL (1.7-2.9) 03/09/19 04:47 Total Bilirubin 0.70 mg/dL (0.2-1.0) 03/13/19 04:55 AST 12 Units/L (15-37) L 03/13/19 04:55 ALT 9 Units/L (12-78) L 03/13/19 04:55 Alkaline Phosphatase 60 Units/L (46-116) 03/13/19 04:55 C-Reactive Protein 101.60 mg/L (0-3.0) H 03/09/19 10:35 Total Protein 6.1 g/dL (6.4-8.2) L 03/13/19 04:55 Albumin 2.4 g/dL (3.4-5.0) L 03/13/19 04:55 Globulin 3.7 g/dL (2.5-4.5) 03/13/19 04:55 Albumin/Globulin Ratio 0.6 Ratio (1.1-2.1) L 03/13/19 04:55 Vancomycin Trough 13.4 ug/mL (15-20) L 03/12/19 19:12 - Plan (1) Cellulitis of right foot Status: Acute Plan: IV VANCOMYCIN, IV LEVAQUIN, CONTINUE TO MONITOR
[2019-03-13] MEDS: ELIQUIS PO SCH ×2 (08:38→21:00)
[2019-03-13] MEDS: LEVAQUIN PREMIX IV 500 MG 500 MG/100 ML BAG IV SCH (08:38)
[2019-03-13] MEDS: PATIENT'S HOME MEDICATION PO SCH (08:38)
--- NOTE | 2019-03-13 10:18 | PCM.PROG ---
Progress Note - Progress Note for Day of Date of Exam: 03/13/19 - Subjective Subjective: WAS ADMITTED FOR RIGHT LOWER EXTREMITY CELLULITIS. TODAY, HE IS ALERT AND ORIENTED, LYING IN BED ON MORNING ROUNDS. HE CONTINUES WITH ERYTHEMA, EDEMA, AND PAIN TO THE RIGHT FOOT. ERYTHEMA AND EDEMA CONTINUE TO DECREASE. ON EXAMINATION, HEART IS REGULAR IN RATE AND RHYTHM. BILATERAL LUNGS ARE NOTED WITH DIMINISHED LUNG SOUNDS THROUGHOUT. ABDOMEN IS ROUND, SOFT, AND NON-TENDER WITH NORMAL BOWEL SOUNDS NOTED IN ALL QUADRANTS. RIGHT FOOT CONTINUES WITH ERYTHEMA AND EDEMA. HIS VITALS THIS MORNING ARE 98.1-82-20-97%-171/85. LABS WERE OBTAINED. ABNORMAL LAB VALUES INCLUDE THE FOLLOWING: RBC 3.53, HGB 11.7, HCT 34.0, POTASSIUM 3.4, CALCIUM 8.3, AST 12, ALT 9, TOTAL PROTEIN 6.1, ALBUMIN 2.4. HE IS CURRENTLY RECEIVING IV FLUIDS, IV VANCOMYCIN, AND IV LEVAQUIN. WE WILL CONTINUE WITH CURRENT PLAN OF CARE TODAY. OTHERWISE, WE WILL FOLLOW UP WITH AM LABS AND CONTINUE TO MONITOR. - Past Medical Family Social History Past Med/Fam/Surg Hx: No changes since H&P Allergies: Allergies diphenhydramine [From Benadryl] Allergy (Verified 03/08/19 16:44) - Review of Systems ROS: No change since H&P - Vital Signs and I&O's Vital Signs: Temperature 98.1 F Pulse Rate [Left Brachial] 82 Respiratory Rate 20 Blood Pressure [Left Arm] 171/85 Blood Pressure 145/62 O2 Sat by Pulse Oximetry 97 Intake and Output: Intake & Output 03/10/19 03/11/19 03/12/19 03/13/19 11:59 11:59 11:59 11:59 Intake Total 3680 / 3680 2064 2950 / 2950 3239 / 3239 Balance 3680 / 3680 2064 2950 / 2950 3239 / 3239 - Physical Exam Oriented: Normal Eyes: Normal Ear: Normal Nose: Normal Throat: Normal Respiratory: Normal Cardiovascular: Normal : Normal Auscultation: Bowel Sounds: Normal Tenderness: Normal Skin: Red (RIGHT FOOT ), Tender, Hot Musculoskeletal: Right, Foot, Swelling, Tender Psychiatric: Normal Mood Description: Calm Affect: Normal Speech Pattern: Clear, Appropriate - Laboratory and Diagnostics Result Diagrams: 03/13/19 04:55 03/13/19 04:55 Labs: 03/08/19 16:56 Blood Blood Culture - Final 03/08/19 16:50 Blood Blood Culture - Preliminary Laboratory WBC 7.7 X10^3/uL (3.6-10.0) 03/13/19 04:55 RBC 3.53 X10^6/uL (4.7-6.0) L 03/13/19 04:55 Hgb 11.7 g/dL (13.5-18.0) L 03/13/19 04:55 Hct 34.0 % (42.0-54.0) L 03/13/19 04:55 MCV 96.3 fL (80.0-100.0) 03/13/19 04:55 MCH 33.0 pg (27.0-34.0) 03/13/19 04:55 MCHC 34.3 g/dL (33.0-35.0) 03/13/19 04:55 RDW 15.0 % (11.6-16.5) 03/13/19 04:55 Plt Count 171 X10^3/uL (150.0-450.0) 03/13/19 04:55 MPV 8.1 fL (7.4-11.0) 03/13/19 04:55 Neut % (Auto) 68.5 % (42.0-75.0) 03/13/19 04:55 Lymph % (Auto) 19.5 % (21.0-51.0) L 03/13/19 04:55 [place] % (Auto) 7.3 % (0.0-13.0) 03/13/19 04:55 Eos % (Auto) 4.0 % (0.9-2.9) H 03/13/19 04:55 Baso % (Auto) 0.7 % (0.2-1.0) 03/13/19 04:55 Neut # (Auto) 5.3 x10^3/uL (2.2-4.8) H 03/13/19 04:55 Lymph # (Auto) 1.5 X10^3/uL (1.3-2.9) 03/13/19 04:55 [place] # (Auto) 0.6 x10^3/uL (0.3-0.8) 03/13/19 04:55 Eos # (Auto) 0.3 x10^3/uL (0.0-0.2) H 03/13/19 04:55 Baso # (Auto) 0.1 X10^3/uL (0.0-0.1) 03/13/19 04:55 Absolute Nucleated RBC 0.0 /100WBC 03/13/19 04:55 ESR 51 MM/HOUR (0-15) H 03/09/19 10:35 Sodium 140 mmol/L (136-145) 03/13/19 04:55 Corrected Sodium TNP 03/13/19 04:55 Potassium 3.4 mmol/L (3.5-5.1) L 03/13/19 04:55 Chloride 104 mmol/L (98-107) 03/13/19 04:55 Carbon Dioxide 29.6 mmol/L (21-32) 03/13/19 04:55 BUN 11 mg/dL (7-18) 03/13/19 04:55 Creatinine 0.86 mg/dL (0.70-1.30) 03/13/19 04:55 Est GFR (MDRD) Af Amer > 60 (>60) 03/13/19 04:55 Est GFR (MDRD) Non-Af > 60 (>60) 03/13/19 04:55 Glucose 99 mg/dL (65-99) 03/13/19 04:55 Uric Acid 5.7 mg/dL (3.5-7.2) 03/09/19 10:35 Calcium 8.3 mg/dL (8.5-10.1) L 03/13/19 04:55 Corrected Calcium 9.6 mg/dL (8.5-10.1) 03/13/19 04:55 Magnesium 2.0 mg/dL (1.7-2.9) 03/09/19 04:47 Total Bilirubin 0.70 mg/dL (0.2-1.0) 03/13/19 04:55 AST 12 Units/L (15-37) L 03/13/19 04:55 ALT 9 Units/L (12-78) L 03/13/19 04:55 Alkaline Phosphatase 60 Units/L (46-116) 03/13/19 04:55 C-Reactive Protein 101.60 mg/L (0-3.0) H 03/09/19 10:35 Total Protein 6.1 g/dL (6.4-8.2) L 03/13/19 04:55 Albumin 2.4 g/dL (3.4-5.0) L 03/13/19 04:55 Globulin 3.7 g/dL (2.5-4.5) 03/13/19 04:55 Albumin/Globulin Ratio 0.6 Ratio (1.1-2.1) L 03/13/19 04:55 Vancomycin Trough 13.4 ug/mL (15-20) L 03/12/19 19:12 - Plan (1) Cellulitis of right foot Status: Acute Plan: IV VANCOMYCIN, IV LEVAQUIN, CONTINUE TO MONITOR
[2019-03-13] MEDS: VANCOMYCIN HCL 1 G in D5W 250 ML IV 250 ML IV SCH ×2 (10:37→21:00)
[2019-03-13] MEDS: COLACE CAP 100 MG PO SCH (21:00)
[2019-03-14] MEDS: NS 1000 ML 1,000 ML IV SCH ×2 (03:00→16:00)
[2019-03-14 06:03] LABS: BASOPHILS % (AUTO) 0.5 % (0.2-1.0); EOSINOPHILS # (AUTO) 0.3 x10^3/uL (0.0-0.2); EOSINOPHILS % (AUTO) 3.4 % (0.9-2.9); HEMOGLOBIN 11.4 g/dL (13.5-18.0); LYMPHOCYTES # (AUTO) 1.5 X10^3/uL (1.3-2.9); LYMPHOCYTES % (AUTO) 19.8 % (21.0-51.0); MEAN CORPUSCULAR HGB CONC 34.6 g/dL (33.0-35.0); MEAN CORPUSCULAR VOLUME 95.3 fL (80.0-100.0); MEAN PLATELET VOLUME 7.7 fL (7.4-11.0); MONOCYTES # (AUTO) 0.6 x10^3/uL (0.3-0.8); MONOCYTES % (AUTO) 8.1 % (0.0-13.0); NEUTROPHILS # (AUTO) 5.2 x10^3/uL (2.2-4.8); NEUTROPHILS % (AUTO) 68.2 % (42.0-75.0); PLATELET COUNT 184 X10^3/uL (150.0-450.0); RED BLOOD COUNT 3.46 X10^6/uL (4.7-6.0); RED CELL DISTRIBUTION WIDTH 14.6 % (11.6-16.5); WHITE BLOOD COUNT 7.6 X10^3/uL (3.6-10.0)
[2019-03-14 06:35] LABS: ALANINE AMINOTRANSFERASE 7 Units/L (12-78); ALBUMIN 2.5 g/dL (3.4-5.0); ALKALINE PHOSPHATASE 60 Units/L (46-116); ASPARTATE AMINO TRANSFERASE 11 Units/L (15-37); BLOOD UREA NITROGEN 11 mg/dL (7-18); CALCIUM 8.5 mg/dL (8.5-10.1); CARBON DIOXIDE 29.2 mmol/L (21-32); CHLORIDE 105 mmol/L (98-107); COR CA(FOR HYPOALB) 9.7 mg/dL (8.5-10.1); SODIUM 140 mmol/L (136-145); TOTAL PROTEIN 6.1 g/dL (6.4-8.2); eGFR NON BLACK RACES > 60 (>60)
[2019-03-14] MEDS: ELIQUIS PO SCH ×2 (08:40→20:49)
[2019-03-14] MEDS: LEVAQUIN PREMIX IV 500 MG 500 MG/100 ML BAG IV SCH (08:40)
[2019-03-14] MEDS: PATIENT'S HOME MEDICATION PO SCH (08:41)
[2019-03-14] MEDS: ZOFRAN INJ 4 MG VIAL IVP PRN (08:45)
[2019-03-14] MEDS: K-DUR TAB 20 MEQ PO PRN (08:45)
--- NOTE | 2019-03-14 10:04 | PCM.PROG ---
Progress Note - Progress Note for Day of Date of Exam: 03/14/19 - Subjective Subjective: WAS ADMITTED FOR RIGHT LOWER EXTREMITY CELLULITIS. TODAY, HE IS ALERT AND ORIENTED, LYING IN BED ON MORNING ROUNDS. HE CONTINUES WITH ERYTHEMA, EDEMA, AND PAIN TO THE RIGHT FOOT. ERYTHEMA HAS DECREASED, HOWEVER, FOOT REMAINS SWOLLEN. ON EXAMINATION, HEART IS REGULAR IN RATE AND RHYTHM. BILATERAL LUNGS ARE NOTED WITH DIMINISHED LUNG SOUNDS THROUGHOUT. ABDOMEN IS ROUND, SOFT, AND NON-TENDER WITH NORMAL BOWEL SOUNDS NOTED IN ALL QUADRANTS. RIGHT FOOT CONTINUES WITH ERYTHEMA AND EDEMA. HIS VITALS THIS MORNING ARE 97.6-86-20-96%-168/96. LABS WERE OBTAINED. ABNORMAL LAB VALUES INCLUDE THE FOLLOWIN.46, HGB 11.4, HCT 33.0, POTASSIUM 3.3, GLUCOSE 106, AST 11, ADRIANA 7, TOTAL PROTEIN 6.1, ALBUMIN 2.5. HE IS CURRENTLY RECEIVING IV FLUIDS, IV VANCOMYCIN, AND IV LEVAQUIN. WE WILL CONTINUE WITH CURRENT PLAN OF CARE TODAY AND START TORADOL 15MG IV Q6H. OTHERWISE, WE WILL FOLLOW UP WITH AM LABS AND CONTINUE TO MONITOR. - Past Medical Family Social History Past Med/Fam/Surg Hx: No changes since H&P Allergies: Allergies diphenhydramine [From Benadryl] Allergy (Verified 03/08/19 16:44) - Review of Systems ROS: No change since H&P - Vital Signs and I&O's Vital Signs: Temperature 97.6 F Pulse Rate [Left Brachial] 86 Respiratory Rate 20 Blood Pressure [Left Arm] 168/96 Blood Pressure 145/62 O2 Sat by Pulse Oximetry 96 Intake and Output: Intake & Output 03/11/19 03/12/19 03/13/19 03/14/19 11:59 11:59 11:59 11:59 Intake Total 2064 2950 / 2950 3239 / 3239 2330 / 2330 Balance 2064 2950 / 2950 3239 / 3239 2330 / 2330 - Physical Exam Oriented: Normal Eyes: Normal Ear: Normal Nose: Normal Throat: Normal Respiratory: Normal Cardiovascular: Normal : Normal Auscultation: Bowel Sounds: Normal Palpation: Normal Tenderness: Normal Skin: Red (RIGHT FOOT ), Tender, Hot Musculoskeletal: Right, Foot, Swelling, Tender Psychiatric: Normal Mood Description: Calm Affect: Normal Speech Pattern: Clear, Appropriate - Laboratory and Diagnostics Result Diagrams: 03/14/19 05:11 03/14/19 05:11 Labs: 03/08/19 16:50 Blood Blood Culture - Final 03/08/19 16:56 Blood Blood Culture - Final Laboratory WBC 7.6 X10^3/uL (3.6-10.0) 03/14/19 05:11 RBC 3.46 X10^6/uL (4.7-6.0) L 03/14/19 05:11 Hgb 11.4 g/dL (13.5-18.0) L 03/14/19 05:11 Hct 33.0 % (42.0-54.0) L 03/14/19 05:11 MCV 95.3 fL (80.0-100.0) 03/14/19 05:11 MCH 33.0 pg (27.0-34.0) 03/14/19 05:11 MCHC 34.6 g/dL (33.0-35.0) 03/14/19 05:11 RDW 14.6 % (11.6-16.5) 03/14/19 05:11 Plt Count 184 X10^3/uL (150.0-450.0) 03/14/19 05:11 MPV 7.7 fL (7.4-11.0) 03/14/19 05:11 Neut % (Auto) 68.2 % (42.0-75.0) 03/14/19 05:11 Lymph % (Auto) 19.8 % (21.0-51.0) L 03/14/19 05:11 [place] % (Auto) 8.1 % (0.0-13.0) 03/14/19 05:11 Eos % (Auto) 3.4 % (0.9-2.9) H 03/14/19 05:11 Baso % (Auto) 0.5 % (0.2-1.0) 03/14/19 05:11 Neut # (Auto) 5.2 x10^3/uL (2.2-4.8) H 03/14/19 05:11 Lymph # (Auto) 1.5 X10^3/uL (1.3-2.9) 03/14/19 05:11 [place] # (Auto) 0.6 x10^3/uL (0.3-0.8) 03/14/19 05:11 Eos # (Auto) 0.3 x10^3/uL (0.0-0.2) H 03/14/19 05:11 Baso # (Auto) 0.0 X10^3/uL (0.0-0.1) 03/14/19 05:11 Absolute Nucleated RBC 0.0 /100WBC 03/14/19 05:11 ESR 51 MM/HOUR (0-15) H 03/09/19 10:35 Sodium 140 mmol/L (136-145) 03/14/19 05:11 Corrected Sodium TNP 03/14/19 05:11 Potassium 3.3 mmol/L (3.5-5.1) L 03/14/19 05:11 Chloride 105 mmol/L (98-107) 03/14/19 05:11 Carbon Dioxide 29.2 mmol/L (21-32) 03/14/19 05:11 BUN 11 mg/dL (7-18) 03/14/19 05:11 Creatinine 0.80 mg/dL (0.70-1.30) 03/14/19 05:11 Est GFR (MDRD) Af Amer > 60 (>60) 03/14/19 05:11 Est GFR (MDRD) Non-Af > 60 (>60) 03/14/19 05:11 Glucose 106 mg/dL (65-99) H 03/14/19 05:11 Uric Acid 5.7 mg/dL (3.5-7.2) 03/09/19 10:35 Calcium 8.5 mg/dL (8.5-10.1) 03/14/19 05:11 Corrected Calcium 9.7 mg/dL (8.5-10.1) 03/14/19 05:11 Magnesium 2.0 mg/dL (1.7-2.9) 03/09/19 04:47 Total Bilirubin 0.70 mg/dL (0.2-1.0) 03/14/19 05:11 AST 11 Units/L (15-37) L 03/14/19 05:11 ALT 7 Units/L (12-78) L 03/14/19 05:11 Alkaline Phosphatase 60 Units/L (46-116) 03/14/19 05:11 C-Reactive Protein 101.60 mg/L (0-3.0) H 03/09/19 10:35 Total Protein 6.1 g/dL (6.4-8.2) L 03/14/19 05:11 Albumin 2.5 g/dL (3.4-5.0) L 03/14/19 05:11 Globulin 3.6 g/dL (2.5-4.5) 03/14/19 05:11 Albumin/Globulin Ratio 0.7 Ratio (1.1-2.1) L 03/14/19 05:11 Vancomycin Trough 13.4 ug/mL (15-20) L 03/12/19 19:12 - Plan (1) Cellulitis of right foot Status: Acute Plan: IV VANCOMYCIN, IV LEVAQUIN, TORADOL 15MG IV Q6H X 3 DOSES, CONTINUE TO MONITOR
[2019-03-14] MEDS: VANCOMYCIN HCL 1 G in D5W 250 ML IV 250 ML IV SCH ×3 (10:21→20:48)
[2019-03-14] MEDS ORDERED: TORADOL 15 MG VIAL ONE (10:42)
[2019-03-14] MEDS: TORADOL 15 MG VIAL IVP SCH ×3 (10:44→21:00)
[2019-03-14] MEDS: COLACE CAP 100 MG PO SCH (20:48)
[2019-03-14 21:47] LABS: CREATININE 0.86 mg/dL (0.70-1.30); VANCOMYCIN,TROUGH 13.7 ug/mL (15-20)
[2019-03-15 05:34] LABS: ALANINE AMINOTRANSFERASE 9 Units/L (12-78); ALBUMIN 2.3 g/dL (3.4-5.0); ALKALINE PHOSPHATASE 56 Units/L (46-116); ASPARTATE AMINO TRANSFERASE 13 Units/L (15-37); BLOOD UREA NITROGEN 12 mg/dL (7-18); CALCIUM 8.2 mg/dL (8.5-10.1); CARBON DIOXIDE 29.3 mmol/L (21-32); CHLORIDE 105 mmol/L (98-107); COR CA(FOR HYPOALB) 9.6 mg/dL (8.5-10.1); CREATININE 0.83 mg/dL (0.70-1.30); MAGNESIUM 1.8 mg/dL (1.7-2.9); SODIUM 141 mmol/L (136-145); TOTAL PROTEIN 5.6 g/dL (6.4-8.2); eGFR NON BLACK RACES > 60 (>60)
[2019-03-15 05:35] LABS: BASOPHILS # (AUTO) 0.1 X10^3/uL (0.0-0.1); BASOPHILS % (AUTO) 0.8 % (0.2-1.0); EOSINOPHILS # (AUTO) 0.3 x10^3/uL (0.0-0.2); EOSINOPHILS % (AUTO) 4.9 % (0.9-2.9); HEMATOCRIT 31.3 % (42.0-54.0); HEMOGLOBIN 10.8 g/dL (13.5-18.0); LYMPHOCYTES # (AUTO) 1.3 X10^3/uL (1.3-2.9); LYMPHOCYTES % (AUTO) 19.3 % (21.0-51.0); MEAN CORPUSCULAR HEMOGLOBIN 33.3 pg (27.0-34.0); MEAN CORPUSCULAR HGB CONC 34.4 g/dL (33.0-35.0); MEAN CORPUSCULAR VOLUME 96.9 fL (80.0-100.0); MEAN PLATELET VOLUME 8.2 fL (7.4-11.0); MONOCYTES # (AUTO) 0.5 x10^3/uL (0.3-0.8); MONOCYTES % (AUTO) 7.8 % (0.0-13.0); NEUTROPHILS # (AUTO) 4.4 x10^3/uL (2.2-4.8); NEUTROPHILS % (AUTO) 67.2 % (42.0-75.0); PLATELET COUNT 177 X10^3/uL (150.0-450.0); RED BLOOD COUNT 3.23 X10^6/uL (4.7-6.0); RED CELL DISTRIBUTION WIDTH 14.6 % (11.6-16.5); WHITE BLOOD COUNT 6.6 X10^3/uL (3.6-10.0)
[2019-03-15] MEDS: NS 1000 ML 1,000 ML IV SCH ×2 (05:36→21:10)
[2019-03-15] MEDS: PATIENT'S HOME MEDICATION PO SCH (09:22)
[2019-03-15] MEDS: K-DUR TAB 20 MEQ PO PRN (09:23)
[2019-03-15] MEDS: VANCOMYCIN HCL 1 G in D5W 250 ML IV 250 ML IV SCH ×2 (09:24→20:25)
[2019-03-15] MEDS: ELIQUIS PO SCH ×2 (09:24→20:25)
[2019-03-15] MEDS: LEVAQUIN PREMIX IV 500 MG 500 MG/100 ML BAG IV SCH (09:24)
[2019-03-15] MEDS: MAGNESIUM SULFATE 1 GRAM/100 mL PREMIX 1 GM/100 ML BAG IV PRN ×2 (09:25→12:00)
[2019-03-15] MEDS: COLACE CAP 100 MG PO SCH (20:24)
[2019-03-16 05:16] LABS: BASOPHILS % (AUTO) 0.5 % (0.2-1.0); EOSINOPHILS # (AUTO) 0.3 x10^3/uL (0.0-0.2); EOSINOPHILS % (AUTO) 3.4 % (0.9-2.9); HEMOGLOBIN 11.2 g/dL (13.5-18.0); LYMPHOCYTES # (AUTO) 1.4 X10^3/uL (1.3-2.9); MEAN CORPUSCULAR HEMOGLOBIN 33.5 pg (27.0-34.0); MEAN CORPUSCULAR HGB CONC 34.9 g/dL (33.0-35.0); MEAN CORPUSCULAR VOLUME 96.2 fL (80.0-100.0); MEAN PLATELET VOLUME 8.1 fL (7.4-11.0); MONOCYTES # (AUTO) 0.6 x10^3/uL (0.3-0.8); MONOCYTES % (AUTO) 7.6 % (0.0-13.0); NEUTROPHILS % (AUTO) 71.5 % (42.0-75.0); PLATELET COUNT 198 X10^3/uL (150.0-450.0); RED BLOOD COUNT 3.33 X10^6/uL (4.7-6.0); RED CELL DISTRIBUTION WIDTH 14.9 % (11.6-16.5); WHITE BLOOD COUNT 8.4 X10^3/uL (3.6-10.0)
[2019-03-16 05:29] LABS: ALANINE AMINOTRANSFERASE 9 Units/L (12-78); ALBUMIN 2.5 g/dL (3.4-5.0); ALKALINE PHOSPHATASE 61 Units/L (46-116); ASPARTATE AMINO TRANSFERASE 12 Units/L (15-37); BLOOD UREA NITROGEN 11 mg/dL (7-18); CALCIUM 8.1 mg/dL (8.5-10.1); CARBON DIOXIDE 31.5 mmol/L (21-32); CHLORIDE 104 mmol/L (98-107); COR CA(FOR HYPOALB) 9.3 mg/dL (8.5-10.1); CREATININE 0.88 mg/dL (0.70-1.30); MAGNESIUM 2.1 mg/dL (1.7-2.9); SODIUM 140 mmol/L (136-145); TOTAL PROTEIN 6.1 g/dL (6.4-8.2); eGFR NON BLACK RACES > 60 (>60)
[2019-03-16] MEDS: ZOFRAN INJ 4 MG VIAL IVP PRN (09:05)
[2019-03-16] MEDS: LEVAQUIN PREMIX IV 500 MG 500 MG/100 ML BAG IV SCH (09:09)
[2019-03-16] MEDS: PATIENT'S HOME MEDICATION PO SCH (09:11)
[2019-03-16] MEDS: ELIQUIS PO SCH ×2 (11:07→20:27)
[2019-03-16] MEDS: VANCOMYCIN HCL 1 G in D5W 250 ML IV 250 ML IV SCH ×2 (11:07→20:26)
[2019-03-16] MEDS: NEURONTIN CAP 300 MG PO SCH ×3 (11:33→21:12)
[2019-03-16] MEDS: NS 1000 ML 1,000 ML IV SCH ×2 (15:30→20:32)
--- NOTE | 2019-03-16 19:22 | PCM.PROG ---
Progress Note - Progress Note for Day of Date of Exam: 03/15/19 - Subjective Subjective: WAS ADMITTED FOR RIGHT LOWER EXTREMITY CELLULITIS. TODAY, HE IS ALERT AND ORIENTED, LYING IN BED ON MORNING ROUNDS. HE CONTINUES WITH SWELLING AND PAIN TO THE RIGHT FOOT. ON EXAMINATION, HEART IS REGULAR IN RATE AND RHYTHM. BILATERAL LUNGS ARE NOTED WITH DIMINISHED LUNG SOUNDS THROUGHOUT. ABDOMEN IS ROUND, SOFT, AND NON-TENDER WITH NORMAL BOWEL SOUNDS NOTED IN ALL QUADRANTS. RIGHT FOOT CONTINUES WITH EDEMA. HIS VITALS THIS MORNING ARE 97.8-74-18-94%-156/74. LABS WERE OBTAINED ABNORMAL LAB VALUES INCLUDE THE FOLLOWING: RBC 3.23, HGB 10.8, HCT 31.3, CALCIUM 8.2, AST 13, ALT 9, TOTAL PROTEIN 5.6, ALBUMIN 2.3. HE IS CURRENTLY RECEIVING IV FLUIDS, IV VANCOMYCIN, AND IV LEVAQUIN. WE WILL CONTINUE WITH CURRENT PLAN OF CARE TODAY AND START TORADOL 15MG IV Q6H. OTHERWISE, WE WILL FOLLOW UP WITH AM LABS AND CONTINUE TO MONITOR. - Past Medical Family Social History Past Med/Fam/Surg Hx: No changes since H&P Allergies: Allergies diphenhydramine [From Benadryl] Allergy (Verified 03/08/19 16:44) - Review of Systems ROS: No change since H&P - Vital Signs and I&O's Vital Signs: Temperature 98.0 F Pulse Rate [Left Brachial] 74 Respiratory Rate 18 Blood Pressure [Right Arm] 111/55 Blood Pressure [Left Arm] 138/75 Blood Pressure 145/62 O2 Sat by Pulse Oximetry 96 Intake and Output: Intake & Output 03/14/19 03/15/19 03/16/19 03/17/19 11:59 11:59 11:59 11:59 Intake Total 2330 / 2330 2430 / 2430 2820 / 2820 940 / 940 Balance 2330 / 2330 2430 / 2430 2820 / 2820 940 / 940 - Physical Exam Oriented: Normal Eyes: Normal Ear: Normal Nose: Normal Throat: Normal Respiratory: Normal Cardiovascular: Normal : Normal Auscultation: Bowel Sounds: Normal Tenderness: Normal Skin: Red (RIGHT FOOT ), Tender, Hot Musculoskeletal: Right, Foot, Swelling, Tender Psychiatric: Normal Mood Description: Calm Affect: Normal Speech Pattern: Clear, Appropriate - Laboratory and Diagnostics Result Diagrams: 03/16/19 04:26 03/16/19 04:26 Labs: 03/08/19 16:50 Blood Blood Culture - Final 03/08/19 16:56 Blood Blood Culture - Final Laboratory WBC 8.4 X10^3/uL (3.6-10.0) 03/16/19 04:26 RBC 3.33 X10^6/uL (4.7-6.0) L 03/16/19 04:26 Hgb 11.2 g/dL (13.5-18.0) L 03/16/19 04:26 Hct 32.0 % (42.0-54.0) L 03/16/19 04:26 MCV 96.2 fL (80.0-100.0) 03/16/19 04:26 MCH 33.5 pg (27.0-34.0) 03/16/19 04:26 MCHC 34.9 g/dL (33.0-35.0) 03/16/19 04:26 RDW 14.9 % (11.6-16.5) 03/16/19 04:26 Plt Count 198 X10^3/uL (150.0-450.0) 03/16/19 04:26 MPV 8.1 fL (7.4-11.0) 03/16/19 04:26 Neut % (Auto) 71.5 % (42.0-75.0) 03/16/19 04:26 Lymph % (Auto) 17.0 % (21.0-51.0) L 03/16/19 04:26 [place] % (Auto) 7.6 % (0.0-13.0) 03/16/19 04:26 Eos % (Auto) 3.4 % (0.9-2.9) H 03/16/19 04:26 Baso % (Auto) 0.5 % (0.2-1.0) 03/16/19 04:26 Neut # (Auto) 6.0 x10^3/uL (2.2-4.8) H 03/16/19 04:26 Lymph # (Auto) 1.4 X10^3/uL (1.3-2.9) 03/16/19 04:26 [place] # (Auto) 0.6 x10^3/uL (0.3-0.8) 03/16/19 04:26 Eos # (Auto) 0.3 x10^3/uL (0.0-0.2) H 03/16/19 04:26 Baso # (Auto) 0.0 X10^3/uL (0.0-0.1) 03/16/19 04:26 Absolute Nucleated RBC 0.1 /100WBC 03/16/19 04:26 ESR 51 MM/HOUR (0-15) H 03/09/19 10:35 Sodium 140 mmol/L (136-145) 03/16/19 04:26 Corrected Sodium TNP 03/16/19 04:26 Potassium 3.6 mmol/L (3.5-5.1) 03/16/19 04:26 Chloride 104 mmol/L (98-107) 03/16/19 04:26 Carbon Dioxide 31.5 mmol/L (21-32) 03/16/19 04:26 BUN 11 mg/dL (7-18) 03/16/19 04:26 Creatinine 0.88 mg/dL (0.70-1.30) 03/16/19 04:26 Est GFR (MDRD) Af Amer > 60 (>60) 03/16/19 04:26 Est GFR (MDRD) Non-Af > 60 (>60) 03/16/19 04:26 Glucose 105 mg/dL (65-99) H 03/16/19 04:26 Uric Acid 5.7 mg/dL (3.5-7.2) 03/09/19 10:35 Calcium 8.1 mg/dL (8.5-10.1) L 03/16/19 04:26 Corrected Calcium 9.3 mg/dL (8.5-10.1) 03/16/19 04:26 Magnesium 2.1 mg/dL (1.7-2.9) 03/16/19 04:26 Total Bilirubin 0.60 mg/dL (0.2-1.0) 03/16/19 04:26 AST 12 Units/L (15-37) L 03/16/19 04:26 ALT 9 Units/L (12-78) L 03/16/19 04:26 Alkaline Phosphatase 61 Units/L (46-116) 03/16/19 04:26 C-Reactive Protein 101.60 mg/L (0-3.0) H 03/09/19 10:35 Total Protein 6.1 g/dL (6.4-8.2) L 03/16/19 04:26 Albumin 2.5 g/dL (3.4-5.0) L 03/16/19 04:26 Globulin 3.6 g/dL (2.5-4.5) 03/16/19 04:26 Albumin/Globulin Ratio 0.7 Ratio (1.1-2.1) L 03/16/19 04:26 Vancomycin Trough 13.7 ug/mL (15-20) L 03/14/19 21:14 - Plan (1) Cellulitis of right foot Status: Acute Plan: IV VANCOMYCIN, IV LEVAQUIN, TORADOL 15MG IV Q6H X 3 DOSES, CONTINUE TO MONITOR
--- NOTE | 2019-03-16 19:28 | PCM.PROG ---
Progress Note - Progress Note for Day of Date of Exam: 03/16/19 - Subjective Subjective: WAS ADMITTED FOR RIGHT LOWER EXTREMITY CELLULITIS. TODAY, HE IS ALERT AND ORIENTED, LYING IN BED ON MORNING ROUNDS. HE CONTINUES WITH SWELLING AND PAIN TO THE RIGHT FOOT. ON EXAMINATION, HEART IS REGULAR IN RATE AND RHYTHM. BILATERAL LUNGS ARE NOTED WITH DIMINISHED LUNG SOUNDS THROUGHOUT. ABDOMEN IS ROUND, SOFT, AND NON-TENDER WITH NORMAL BOWEL SOUNDS NOTED IN ALL QUADRANTS. RIGHT FOOT CONTINUES WITH EDEMA. HIS VITALS THIS MORNING ARE 97.8-80-18-96%-149/71. LABS WERE OBTAINED. ABNORMAL LAB VALUES INCLUDE THE FOLLOWING: RBC 3.33, HGB 11.2, HCT 32.0. HE IS CURRENTLY RECEIVING IV FLUIDS, IV VANCOMYCIN, AND IV LEVAQUIN. WE WILL CONTINUE WITH CURRENT PLAN OF CARE TODAY AND START GABAPENTIN 300MG PO TID. OTHERWISE, WE WILL FOLLOW UP WITH AM LABS AND CONTINUE TO MONITOR. - Past Medical Family Social History Past Med/Fam/Surg Hx: No changes since H&P Allergies: Allergies diphenhydramine [From Benadryl] Allergy (Verified 03/08/19 16:44) - Review of Systems ROS: No change since H&P - Vital Signs and I&O's Vital Signs: Temperature 98.0 F Pulse Rate [Left Brachial] 74 Respiratory Rate 18 Blood Pressure [Right Arm] 111/55 Blood Pressure [Left Arm] 138/75 Blood Pressure 145/62 O2 Sat by Pulse Oximetry 96 Intake and Output: Intake & Output 03/14/19 03/15/19 03/16/19 03/17/19 11:59 11:59 11:59 11:59 Intake Total 2330 / 2330 2430 / 2430 2820 / 2820 940 / 940 Balance 2330 / 2330 2430 / 2430 2820 / 2820 940 / 940 - Physical Exam Oriented: Normal Eyes: Normal Ear: Normal Nose: Normal Throat: Normal Respiratory: Normal Cardiovascular: Normal : Normal Auscultation: Bowel Sounds: Normal Tenderness: Normal Skin: Red (RIGHT FOOT ), Tender, Hot Musculoskeletal: Right, Foot, Swelling, Tender Psychiatric: Normal Mood Description: Calm Affect: Normal Speech Pattern: Clear, Appropriate - Laboratory and Diagnostics Result Diagrams: 03/16/19 04:26 03/16/19 04:26 Labs: 03/08/19 16:50 Blood Blood Culture - Final 03/08/19 16:56 Blood Blood Culture - Final Laboratory WBC 8.4 X10^3/uL (3.6-10.0) 03/16/19 04:26 RBC 3.33 X10^6/uL (4.7-6.0) L 03/16/19 04:26 Hgb 11.2 g/dL (13.5-18.0) L 03/16/19 04:26 Hct 32.0 % (42.0-54.0) L 03/16/19 04:26 MCV 96.2 fL (80.0-100.0) 03/16/19 04:26 MCH 33.5 pg (27.0-34.0) 03/16/19 04:26 MCHC 34.9 g/dL (33.0-35.0) 03/16/19 04:26 RDW 14.9 % (11.6-16.5) 03/16/19 04:26 Plt Count 198 X10^3/uL (150.0-450.0) 03/16/19 04:26 MPV 8.1 fL (7.4-11.0) 03/16/19 04:26 Neut % (Auto) 71.5 % (42.0-75.0) 03/16/19 04:26 Lymph % (Auto) 17.0 % (21.0-51.0) L 03/16/19 04:26 [place] % (Auto) 7.6 % (0.0-13.0) 03/16/19 04:26 Eos % (Auto) 3.4 % (0.9-2.9) H 03/16/19 04:26 Baso % (Auto) 0.5 % (0.2-1.0) 03/16/19 04:26 Neut # (Auto) 6.0 x10^3/uL (2.2-4.8) H 03/16/19 04:26 Lymph # (Auto) 1.4 X10^3/uL (1.3-2.9) 03/16/19 04:26 [place] # (Auto) 0.6 x10^3/uL (0.3-0.8) 03/16/19 04:26 Eos # (Auto) 0.3 x10^3/uL (0.0-0.2) H 03/16/19 04:26 Baso # (Auto) 0.0 X10^3/uL (0.0-0.1) 03/16/19 04:26 Absolute Nucleated RBC 0.1 /100WBC 03/16/19 04:26 ESR 51 MM/HOUR (0-15) H 03/09/19 10:35 Sodium 140 mmol/L (136-145) 03/16/19 04:26 Corrected Sodium TNP 03/16/19 04:26 Potassium 3.6 mmol/L (3.5-5.1) 03/16/19 04:26 Chloride 104 mmol/L (98-107) 03/16/19 04:26 Carbon Dioxide 31.5 mmol/L (21-32) 03/16/19 04:26 BUN 11 mg/dL (7-18) 03/16/19 04:26 Creatinine 0.88 mg/dL (0.70-1.30) 03/16/19 04:26 Est GFR (MDRD) Af Amer > 60 (>60) 03/16/19 04:26 Est GFR (MDRD) Non-Af > 60 (>60) 03/16/19 04:26 Glucose 105 mg/dL (65-99) H 03/16/19 04:26 Uric Acid 5.7 mg/dL (3.5-7.2) 03/09/19 10:35 Calcium 8.1 mg/dL (8.5-10.1) L 03/16/19 04:26 Corrected Calcium 9.3 mg/dL (8.5-10.1) 03/16/19 04:26 Magnesium 2.1 mg/dL (1.7-2.9) 03/16/19 04:26 Total Bilirubin 0.60 mg/dL (0.2-1.0) 03/16/19 04:26 AST 12 Units/L (15-37) L 03/16/19 04:26 ALT 9 Units/L (12-78) L 03/16/19 04:26 Alkaline Phosphatase 61 Units/L (46-116) 03/16/19 04:26 C-Reactive Protein 101.60 mg/L (0-3.0) H 03/09/19 10:35 Total Protein 6.1 g/dL (6.4-8.2) L 03/16/19 04:26 Albumin 2.5 g/dL (3.4-5.0) L 03/16/19 04:26 Globulin 3.6 g/dL (2.5-4.5) 03/16/19 04:26 Albumin/Globulin Ratio 0.7 Ratio (1.1-2.1) L 03/16/19 04:26 Vancomycin Trough 13.7 ug/mL (15-20) L 03/14/19 21:14 - Plan (1) Cellulitis of right foot Status: Acute Plan: IV VANCOMYCIN, IV LEVAQUIN, GABAPENTIN 300MG PO TID, CONTINUE TO MONITOR
[2019-03-16 19:43] LABS: CREATININE 0.96 mg/dL (0.70-1.30); VANCOMYCIN,TROUGH 14.8 ug/mL (15-20)
[2019-03-16] MEDS: COLACE CAP 100 MG PO SCH (20:27)
[2019-03-17] MEDS: NS 1000 ML 1,000 ML IV SCH ×2 (04:23→09:15)
[2019-03-17] MEDS: NEURONTIN CAP 300 MG PO SCH (05:02)
[2019-03-17 05:22] LABS: BASOPHILS % (AUTO) 0.5 % (0.2-1.0); EOSINOPHILS # (AUTO) 0.3 x10^3/uL (0.0-0.2); EOSINOPHILS % (AUTO) 4.3 % (0.9-2.9); HEMATOCRIT 31.2 % (42.0-54.0); HEMOGLOBIN 10.8 g/dL (13.5-18.0); LYMPHOCYTES # (AUTO) 1.6 X10^3/uL (1.3-2.9); LYMPHOCYTES % (AUTO) 21.9 % (21.0-51.0); MEAN CORPUSCULAR HEMOGLOBIN 33.6 pg (27.0-34.0); MEAN CORPUSCULAR HGB CONC 34.6 g/dL (33.0-35.0); MEAN CORPUSCULAR VOLUME 97.2 fL (80.0-100.0); MEAN PLATELET VOLUME 7.9 fL (7.4-11.0); MONOCYTES # (AUTO) 0.6 x10^3/uL (0.3-0.8); NEUTROPHILS # (AUTO) 4.9 x10^3/uL (2.2-4.8); NEUTROPHILS % (AUTO) 65.3 % (42.0-75.0); PLATELET COUNT 182 X10^3/uL (150.0-450.0); RED BLOOD COUNT 3.21 X10^6/uL (4.7-6.0); WHITE BLOOD COUNT 7.4 X10^3/uL (3.6-10.0)
[2019-03-17 05:38] LABS: ALANINE AMINOTRANSFERASE 11 Units/L (12-78); ALBUMIN 2.4 g/dL (3.4-5.0); ALKALINE PHOSPHATASE 59 Units/L (46-116); ASPARTATE AMINO TRANSFERASE 13 Units/L (15-37); BLOOD UREA NITROGEN 13 mg/dL (7-18); CALCIUM 8.2 mg/dL (8.5-10.1); CARBON DIOXIDE 30.7 mmol/L (21-32); CHLORIDE 105 mmol/L (98-107); COR CA(FOR HYPOALB) 9.5 mg/dL (8.5-10.1); CREATININE 0.88 mg/dL (0.70-1.30); SODIUM 140 mmol/L (136-145); TOTAL PROTEIN 5.8 g/dL (6.4-8.2); eGFR NON BLACK RACES > 60 (>60)
[2019-03-17] MEDS: ELIQUIS PO SCH (09:14)
[2019-03-17] MEDS: PATIENT'S HOME MEDICATION PO SCH (09:14)
[2019-03-17] MEDS: LEVAQUIN PREMIX IV 500 MG 500 MG/100 ML BAG IV SCH (09:14)
[2019-03-17] MEDS: VANCOMYCIN HCL 1 G in D5W 250 ML IV 250 ML IV SCH (09:15)
[2019-03-17] MEDS: K-DUR TAB 20 MEQ PO PRN (09:20)
[2019-03-17 09:35] VITALS: BP 162/75
== END 2019-03-17 11:50 | disposition home or self-care (01) | DRG 603 ==
LOC: MED/SURG
PROVIDERS: ADMIT Internal Medicine; ATTEND Internal Medicine
DX: R60.0 Localized edema; R79.82 Elevated C-reactive protein (CRP); M13.89 Other specified arthritis, multiple sites; L03.115 Cellulitis of right lower limb; R70.0 Elevated erythrocyte sedimentation rate; M79.671 Pain in right foot
CPT/HCPCS: 36415; 73720; 80053; 80202; 82565; 83735; 84132; 84550; 85025; 85652; 86140; 87040; 93971; 97110; 97162; 97165; A4216; A4222; G0378; J1885; J1956; J2405; J3370; J3475; J7030; J7060

== ENCOUNTER 2019-04-03 17:04 | Observation (INO) ==
[2019-04-03] MEDS ORDERED: NS 1000 ML 1,000 ML IV ONE (17:36)
[2019-04-03 17:59] LABS: BASOPHILS # (AUTO) 0.1 X10^3/uL (0.0-0.1); BASOPHILS % (AUTO) 1.2 % (0.2-1.0); EOSINOPHILS # (AUTO) 0.1 x10^3/uL (0.0-0.2); EOSINOPHILS % (AUTO) 1.3 % (0.9-2.9); HEMATOCRIT 34.1 % (42.0-54.0); HEMOGLOBIN 11.2 g/dL (13.5-18.0); LYMPHOCYTES # (AUTO) 3.4 X10^3/uL (1.3-2.9); LYMPHOCYTES % (AUTO) 30.7 % (21.0-51.0); MEAN CORPUSCULAR HEMOGLOBIN 32.1 pg (27.0-34.0); MEAN CORPUSCULAR HGB CONC 32.7 g/dL (33.0-35.0); MEAN PLATELET VOLUME 8.3 fL (7.4-11.0); MONOCYTES # (AUTO) 0.8 x10^3/uL (0.3-0.8); MONOCYTES % (AUTO) 7.4 % (0.0-13.0); NEUTROPHILS # (AUTO) 6.5 x10^3/uL (2.2-4.8); NEUTROPHILS % (AUTO) 59.4 % (42.0-75.0); PLATELET COUNT 234 X10^3/uL (150.0-450.0); RED BLOOD COUNT 3.48 X10^6/uL (4.7-6.0); RED CELL DISTRIBUTION WIDTH 15.3 % (11.6-16.5)
[2019-04-03] MEDS ORDERED: NS 1000 ML 1,000 ML IV SCH (18:00)
[2019-04-03] MEDS ORDERED: LEVAQUIN PREMIX IV 500 MG 500 MG/100 ML BAG IV SCH (18:00)
[2019-04-03 18:21] LABS: ALANINE AMINOTRANSFERASE 15 Units/L (12-78); ALBUMIN 3.5 g/dL (3.4-5.0); ALKALINE PHOSPHATASE 69 Units/L (46-116); ASPARTATE AMINO TRANSFERASE 33 Units/L (15-37); BLOOD UREA NITROGEN 23 mg/dL (7-18); CALCIUM 8.7 mg/dL (8.5-10.1); CARBON DIOXIDE 24.7 mmol/L (21-32); CHLORIDE 102 mmol/L (98-107); CREATININE 1.09 mg/dL (0.70-1.30); SODIUM 137 mmol/L (136-145); TOTAL PROTEIN 7.5 g/dL (6.4-8.2); eGFR NON BLACK RACES > 60 (>60)
[2019-04-03 18:36] VITALS: BMI 24.4
[2019-04-03] MEDS: NS 1000 ML 1,000 ML IV SCH (22:14)
[2019-04-03] MEDS ORDERED: RESTORIL CAP 15 MG PO ONE (22:16)
[2019-04-03] MEDS: RESTORIL CAP 15 MG PO PRN (22:18)
[2019-04-04] MEDS: ZOFRAN INJ 4 MG VIAL IVP PRN ×2 (04:30→07:54)
[2019-04-04 06:26] LABS: BASOPHILS % (AUTO) 0.6 % (0.2-1.0); EOSINOPHILS # (AUTO) 0.2 x10^3/uL (0.0-0.2); EOSINOPHILS % (AUTO) 2.2 % (0.9-2.9); HEMATOCRIT 26.6 % (42.0-54.0); LYMPHOCYTES # (AUTO) 1.7 X10^3/uL (1.3-2.9); LYMPHOCYTES % (AUTO) 23.6 % (21.0-51.0); MEAN CORPUSCULAR HEMOGLOBIN 33.2 pg (27.0-34.0); MEAN CORPUSCULAR HGB CONC 33.9 g/dL (33.0-35.0); MEAN PLATELET VOLUME 8.2 fL (7.4-11.0); MONOCYTES # (AUTO) 0.5 x10^3/uL (0.3-0.8); MONOCYTES % (AUTO) 7.8 % (0.0-13.0); NEUTROPHILS # (AUTO) 4.6 x10^3/uL (2.2-4.8); NEUTROPHILS % (AUTO) 65.8 % (42.0-75.0); PLATELET COUNT 174 X10^3/uL (150.0-450.0); RED BLOOD COUNT 2.71 X10^6/uL (4.7-6.0); RED CELL DISTRIBUTION WIDTH 15.3 % (11.6-16.5)
[2019-04-04 07:02] LABS: ALANINE AMINOTRANSFERASE 15 Units/L (12-78); ALBUMIN 2.8 g/dL (3.4-5.0); ALKALINE PHOSPHATASE 52 Units/L (46-116); ASPARTATE AMINO TRANSFERASE 14 Units/L (15-37); BLOOD UREA NITROGEN 22 mg/dL (7-18); CALCIUM 7.9 mg/dL (8.5-10.1); CHLORIDE 107 mmol/L (98-107); COR CA(FOR HYPOALB) 8.9 mg/dL (8.5-10.1); CREATININE 0.85 mg/dL (0.70-1.30); SODIUM 142 mmol/L (136-145); TOTAL PROTEIN 5.8 g/dL (6.4-8.2); eGFR NON BLACK RACES > 60 (>60)
[2019-04-04] MEDS: NS 1000 ML 1,000 ML IV SCH ×3 (07:51→21:50)
[2019-04-04] MEDS: LEVAQUIN PREMIX IV 500 MG 500 MG/100 ML BAG IV SCH (08:50)
[2019-04-04 09:06] LABS: BILIRUBIN,URINE NEGATIVE (NEGATIVE); BLOOD/HEMOGLOBIN,URINE NEGATIVE (NEGATIVE); GLUCOSE, URINE NEGATIVE (NEGATIVE); KETONES,URINE NEGATIVE (NEGATIVE); LEUKOCYTE ESTERASE ,URINE NEGATIVE (NEGATIVE); NITRITES,URINE NEGATIVE (NEGATIVE); PROTEIN,URINE NEGATIVE (NEGATIVE); UROBILINOGEN,URINE NORMAL (NORMAL)
[2019-04-04 09:21] LABS: APPEARANCE,URINE CLEAR (CLEAR); COLOR,URINE YELLOW (YELLOW)
--- NOTE | 2019-04-04 10:26 | RAD ---
HISTORYNausea and vomiting and diarrheaSTUDYAcute abdominal seriesCOMPARISONNoneFINDINGSThe lungs are grossly clear. However there is a 1.76 cm nodule projecting over the anterior right 1st rib that may represent a nodule or a large osteophyte at the articulation of the 1st rib with the sternum. The heart is mildly enlarged. There is no effusion.The bowel gas pattern is unremarkable. There is no free air or fluid level. There are moderate degenerative changes throughout the lumbar spine. No urinary tract calcification is demonstrated. There are surgical clips that project at the lateral base of the left neck.IMPRESSION1. Mild cardiomegaly2. No acute disease of the abdomen3. Osteophyte of the articulation of the 1st rib with the sternum versus a pulmonary noduleElectronically signed by: MEAGAN ESQUIVEL (Apr 04, 2019 10:25:11)
[2019-04-04] MEDS ORDERED: ULTRAM PO PRN (10:30)
[2019-04-04] MEDS ORDERED: NORCO 5/325 MG TAB PO PRN (10:30)
--- NOTE | 2019-04-04 10:33 | DR.UPDATE ---
H&P Update History and Physical Update: History and Physical reviewed and patient examined. Changes noted: Yes with the following: WAS SEEN IN THE OFFICE TODAY WITH REPORTS OF NAUSEA, VOMITING, DIARRHEA, AND WEAKNESS. SYMPTOMS STARTED TWO DAYS AGO AND HAVE PROGRESSIVELY GOTTEN WORSE. HE REPORTS 4-6 STOOLS PER DAY. HE WAS ADMITTED FOR FURTHER EVALUATION AND TREATMENT. ON ADMISSION, WE WILL OBTAIN LABS, UA, STOOL STUDIES, AND ABDOMINAL XRAY. WE WILL START NORMAL SALINE AT 80ML/HR, ZOFRAN 4MG IV Q4H PRN, AND WILL REVIEW HIS HOME MEDICATIONS. OTHERWISE, WE WILL FOLLOW UP WITH AM LABS AND CONTINUE TO MONITOR. Prescription drug monitoring program results: PDMP was not reviewed H&P Reviewed: Yes Patient was examined?: Yes
[2019-04-04] MEDS: LEVSIN/MAALOX/LIDOC VISC PO SCH ×4 (14:48→21:49)
[2019-04-04] MEDS: NEURONTIN CAP 300 MG PO SCH ×3 (14:49→21:51)
[2019-04-04] MEDS: MICRO K EXTEN CAP 10 MEQ PO SCH (14:50)
[2019-04-04] MEDS: ELIQUIS PO SCH ×2 (14:50→21:51)
[2019-04-04] MEDS: PEPCID 20 MG IV PREMIX* 20 MG/50 ML BAG IV SCH ×2 (14:51→21:51)
[2019-04-04] MEDS: PROTONIX INJ 40 MG VIAL IVP SCH ×2 (14:51→21:52)
[2019-04-04] MEDS: IBRUTINIB 420 MG PO SCH (14:57)
[2019-04-04] MEDS: RESTORIL CAP 15 MG PO PRN (21:51)
--- NOTE | 2019-04-04 22:20 | PCM.PROG ---
Progress Note - Progress Note for Day of Date of Exam: 04/04/19 - Subjective Subjective: WAS ADMITTED FOR COMPLAINTS OF NAUSEA, VOMITING, DIARRHEA, AND WEAKNESS. TODAY, HE IS ALERT AND ORIENTED, LYING IN BED ON MORNING ROUNDS. HE CONTINUES WITH COMPLAINTS OF WEAKNESS AND DIARRHEA. ON EXAMINATION, HEART IS REGULAR IN RATE AND RHYTHM. BILATERAL LUNGS ARE NOTED WITH DIMINISHED LUNG SOUNDS THROUGHOUT. ABDOMEN IS ROUND, SOFT, AND NOTED WITH DIFFUSE TENDERNESS THROUGHOUT. HER VITALS THIS [place] ARE: 97.5-65-18-97%-131/60. LABS WERE OBTAINED. ABNORMAL LAB VALUES INCLUDE THE FOLLOWING: RBC 2.71, HGB 9.0, HCT 26.6, BUN 22, GLUCOSE 102, CALCIUM 7.9, AST 14, TOTAL PROTEIN 5.8, ALBUMIN 2.8. URINALYSIS IS UNREMARKABLE. ABDOMINAL SERIES REVEALED: 1. Mild cardiomegaly. 2. No acute disease of the abdomen. 3. Osteophyte of the articulation of the 1st rib with the sternum versus a pulmonary nodule. HE WAS STARTED ON NORMAL SALINE AT 80ML/HR. TODAY, WE WILL START IV PEPCID, IV PROTONIX, AND GI COCKTAIL. WE WILL RESUME HIS HOME MEDICATIONS. WE WILL OBTAIN STOL STUDIES. OTHERWISE, WE WILL FOLLOW UP WITH AM LABS AND CONTINUE TO MONITOR. - Past Medical Family Social History Past Med/Fam/Surg Hx: No changes since H&P Allergies: Allergies diphenhydramine [From Benadryl] Allergy (Verified 03/08/19 16:44) - Review of Systems ROS: No change since H&P - Vital Signs and I&O's Vital Signs: Temperature 97.4 F Pulse Rate [Right Brachial] 73 Respiratory Rate 20 Blood Pressure [Right Arm] 133/60 O2 Sat by Pulse Oximetry 100 Intake and Output: Intake & Output 04/02/19 04/03/19 04/04/19 04/05/19 11:59 11:59 11:59 11:59 Intake Total 400 / 400 480 / 480 Balance 400 / 400 480 / 480 - Physical Exam Oriented: Normal Eyes: Normal Ear: Normal Nose: Normal Throat: Normal Respiratory: Generalized, Diminished Cardiovascular: Normal : Normal Auscultation: Bowel Sounds: Normal Palpation: Normal Tenderness: Diffuse, Moderate. negative: Rebound, Guarding, Rigidity Skin: Normal Musculoskeletal: Normal Psychiatric: Normal Mood Description: Calm Affect: Normal Speech Pattern: Clear, Appropriate - Laboratory and Diagnostics Result Diagrams: 04/04/19 05:27 04/04/19 05:27 Labs: Laboratory WBC 7.0 X10^3/uL (3.6-10.0) 04/04/19 05:27 RBC 2.71 X10^6/uL (4.7-6.0) L 04/04/19 05:27 Hgb 9.0 g/dL (13.5-18.0) L D 04/04/19 05:27 Hct 26.6 % (42.0-54.0) L 04/04/19 05:27 MCV 98.0 fL (80.0-100.0) 04/04/19 05:27 MCH 33.2 pg (27.0-34.0) 04/04/19 05:27 MCHC 33.9 g/dL (33.0-35.0) 04/04/19 05:27 RDW 15.3 % (11.6-16.5) 04/04/19 05:27 Plt Count 174 X10^3/uL (150.0-450.0) 04/04/19 05:27 MPV 8.2 fL (7.4-11.0) 04/04/19 05:27 Neut % (Auto) 65.8 % (42.0-75.0) 04/04/19 05:27 Lymph % (Auto) 23.6 % (21.0-51.0) 04/04/19 05:27 [place] % (Auto) 7.8 % (0.0-13.0) 04/04/19 05:27 Eos % (Auto) 2.2 % (0.9-2.9) 04/04/19 05:27 Baso % (Auto) 0.6 % (0.2-1.0) 04/04/19 05:27 Neut # (Auto) 4.6 x10^3/uL (2.2-4.8) 04/04/19 05:27 Lymph # (Auto) 1.7 X10^3/uL (1.3-2.9) 04/04/19 05:27 [place] # (Auto) 0.5 x10^3/uL (0.3-0.8) 04/04/19 05:27 Eos # (Auto) 0.2 x10^3/uL (0.0-0.2) 04/04/19 05:27 Baso # (Auto) 0.0 X10^3/uL (0.0-0.1) 04/04/19 05:27 Absolute Nucleated RBC 0.0 /100WBC 04/04/19 05:27 Sodium 142 mmol/L (136-145) 04/04/19 05:27 Corrected Sodium TNP 04/04/19 05:27 Potassium 3.6 mmol/L (3.5-5.1) 04/04/19 05:27 Chloride 107 mmol/L (98-107) 04/04/19 05:27 Carbon Dioxide 28.0 mmol/L (21-32) 04/04/19 05:27 BUN 22 mg/dL (7-18) H 04/04/19 05:27 Creatinine 0.85 mg/dL (0.70-1.30) 04/04/19 05:27 Est GFR (MDRD) Af Amer > 60 (>60) 04/04/19 05:27 Est GFR (MDRD) Non-Af > 60 (>60) 04/04/19 05:27 Glucose 102 mg/dL (65-99) H 04/04/19 05:27 Calcium 7.9 mg/dL (8.5-10.1) L 04/04/19 05:27 Corrected Calcium 8.9 mg/dL (8.5-10.1) 04/04/19 05:27 Magnesium 1.9 mg/dL (1.7-2.9) 04/04/19 05:27 Total Bilirubin 0.70 mg/dL (0.2-1.0) 04/04/19 05:27 AST 14 Units/L (15-37) L 04/04/19 05:27 ALT 15 Units/L (12-78) 04/04/19 05:27 Alkaline Phosphatase 52 Units/L (46-116) 04/04/19 05:27 Total Protein 5.8 g/dL (6.4-8.2) L 04/04/19 05:27 Albumin 2.8 g/dL (3.4-5.0) L 04/04/19 05:27 Globulin 3.0 g/dL (2.5-4.5) 04/04/19 05:27 Albumin/Globulin Ratio 0.9 Ratio (1.1-2.1) L 04/04/19 05:27 Specimen Type Clean catch urine 04/04/19 08:51 Urine Color Yellow (YELLOW) 04/04/19 08:51 Urine Appearance Clear (CLEAR) 04/04/19 08:51 Urine pH 7.0 (5.0 - 8.0) 04/04/19 08:51 Ur Specific [place] 1.010 (1.000-1.030) 04/04/19 08:51 Urine Protein Negative (NEGATIVE) 04/04/19 08:51 Urine Glucose (UA) Negative (NEGATIVE) 04/04/19 08:51 Urine Ketones Negative (NEGATIVE) 04/04/19 08:51 Urine Occult Blood Negative (NEGATIVE) 04/04/19 08:51 Urine Nitrite Negative (NEGATIVE) 04/04/19 08:51 Urine Bilirubin Negative (NEGATIVE) 04/04/19 08:51 Urine Urobilinogen Normal (NORMAL) 04/04/19 08:51 Ur Leukocyte Esterase Negative (NEGATIVE) 04/04/19 08:51 - Plan (1) Nausea & vomiting Status: Acute Qualifiers: Vomiting Intractability: non-intractable Plan: IV FLUIDS, IV ZOFRAN, IV PEPCID, IV PROTONIX, GI COCKTAIL, CONTINUE TO MONITOR. (2) Abdominal pain Status: Acute Qualifiers: Abdominal location: generalized Qualified Code(s): R10.84 - Generalized abdominal pain Plan: IV FLUIDS, IV ZOFRAN, IV PEPCID, IV PROTONIX, GI COCKTAIL, CONTINUE TO MONITOR. (3) Diarrhea Status: Acute Qualifiers: Diarrhea type: presumed infectious Qualified Code(s): R19.7 - Diarrhea, unspecified Plan: OBTAIN STOOL CULTURES, CONTINUE TO MONITOR
[2019-04-05 06:31] LABS: BASOPHILS % (AUTO) 0.6 % (0.2-1.0); EOSINOPHILS # (AUTO) 0.1 x10^3/uL (0.0-0.2); EOSINOPHILS % (AUTO) 2.2 % (0.9-2.9); HEMATOCRIT 23.9 % (42.0-54.0); HEMOGLOBIN 8.2 g/dL (13.5-18.0); LYMPHOCYTES # (AUTO) 1.6 X10^3/uL (1.3-2.9); LYMPHOCYTES % (AUTO) 26.5 % (21.0-51.0); MEAN CORPUSCULAR HEMOGLOBIN 33.5 pg (27.0-34.0); MEAN CORPUSCULAR HGB CONC 34.1 g/dL (33.0-35.0); MEAN CORPUSCULAR VOLUME 98.1 fL (80.0-100.0); MEAN PLATELET VOLUME 8.2 fL (7.4-11.0); MONOCYTES # (AUTO) 0.5 x10^3/uL (0.3-0.8); MONOCYTES % (AUTO) 8.2 % (0.0-13.0); NEUTROPHILS # (AUTO) 3.8 x10^3/uL (2.2-4.8); NEUTROPHILS % (AUTO) 62.5 % (42.0-75.0); PLATELET COUNT 157 X10^3/uL (150.0-450.0); RED BLOOD COUNT 2.44 X10^6/uL (4.7-6.0); RED CELL DISTRIBUTION WIDTH 15.4 % (11.6-16.5); WHITE BLOOD COUNT 6.1 X10^3/uL (3.6-10.0)
[2019-04-05 06:37] LABS: ALANINE AMINOTRANSFERASE 13 Units/L (12-78); ALBUMIN 2.7 g/dL (3.4-5.0); ALKALINE PHOSPHATASE 50 Units/L (46-116); ASPARTATE AMINO TRANSFERASE 16 Units/L (15-37); BLOOD UREA NITROGEN 12 mg/dL (7-18); CARBON DIOXIDE 27.4 mmol/L (21-32); CHLORIDE 107 mmol/L (98-107); CREATININE 0.85 mg/dL (0.70-1.30); SODIUM 141 mmol/L (136-145); TOTAL PROTEIN 5.6 g/dL (6.4-8.2); eGFR NON BLACK RACES > 60 (>60)
[2019-04-05] MEDS: PEPCID 20 MG IV PREMIX* 20 MG/50 ML BAG IV SCH (08:51)
[2019-04-05] MEDS: LEVAQUIN PREMIX IV 500 MG 500 MG/100 ML BAG IV SCH (08:51)
[2019-04-05] MEDS: ELIQUIS PO SCH (08:52)
[2019-04-05] MEDS: MICRO K EXTEN CAP 10 MEQ PO SCH (08:52)
[2019-04-05] MEDS: PROTONIX INJ 40 MG VIAL IVP SCH (08:53)
[2019-04-05] MEDS: LEVSIN/MAALOX/LIDOC VISC PO SCH (08:53)
[2019-04-05] MEDS: IBRUTINIB 420 MG PO SCH (08:54)
[2019-04-05] MEDS: NS 1000 ML 1,000 ML IV SCH (09:03)
[2019-04-05 10:36] VITALS: BP 124/62
== END 2019-04-05 11:30 | disposition home or self-care (01) ==
LOC: MED/SURG
PROVIDERS: ADMIT Internal Medicine; ATTEND Internal Medicine
CPT/HCPCS: 36415; 74022; 80053; 81003; 83735; 85025; 87086; 94760; 96360; 96361; 96374; A4216; A4222; C9113; S0028; G0378; J1956; J2405; J7030